=== PATIENT | female | born 1955 | race Caucasian/White ===

== ENCOUNTER → 2020-06-12 08:51 | Outpatient (BNVA) | payer MEDICARE, BC, SELFPAY | PROVIDERS: Family Provider Family Medicine; Visit Provider Nurse Practitioner Family | DX: E11.9 Type 2 diabetes mellitus without complications (principal); I10 Essential (primary) hypertension; M25.562 Pain in left knee; Z79.899 Other long term (current) drug therapy | CPT/HCPCS: 80053; 82043; 83036 ==

== ENCOUNTER 2020-06-14 09:33 | Outpatient (CLI) | payer MEDICARE, BC, SELFPAY ==
--- NOTE | 2020-06-14 09:50 | XR_ITS ---
WS: [id number] KNEE LEFT TECHNIQUE: 3 views of the left knee CLINICAL INFORMATION: M25.562 - Pain in left knee COMPARISON: None. FINDINGS: Mild soft tissue edema. Small suprapatellar effusion. Mild tricompartmental arthritis. No acute fract ures. XR/XR knee LT 3V* [id number] IMPRESSION: 1. Mild soft tissue edema with small suprapatellar effusion. 2. Mild tricompartmental arthritis. 3. No acute fractures.
== END 2020-06-14 09:34 | disposition home or self-care (01) ==
LOC: RADWPI 09:38
PROVIDERS: PCP Nurse Practitioner Family; Visit Provider Nurse Practitioner Family
DX: R60.0 Localized edema (principal); M25.462 Effusion, left knee; M13.862 Other specified arthritis, left knee
CPT/HCPCS: 73562

== ENCOUNTER → 2020-11-20 13:52 | Outpatient (BNVA) | payer MEDICARE, BC, SELFPAY | PROVIDERS: PCP Nurse Practitioner Family; Visit Provider Nurse Practitioner Family | DX: E11.9 Type 2 diabetes mellitus without complications (principal) | CPT/HCPCS: 83036 ==

== ENCOUNTER 2021-01-17 07:54 | Outpatient (CLI) | payer MEDICARE, BC, SELFPAY ==
--- NOTE | 2021-01-17 08:02 | XR_ITS ---
WS: [id number] LEFT HIP HISTORY: M25.552 - Pain in left hip COMPARISON: 07/26/[address] LEFT hip: No acute fracture or dislocation. Moderate narrowing of the LEFT hip joint. There is slight medial migration of the femoral head. No osteochondral lesions. Slightly irregularity along the ry ex of the femoral head. Lobulated ill-defined sclerotic focus measuring 15 mm along the intertrochanteric line. This was also noted on a prior CT from 2008 and most consistent with enchondroma. XR/XR hip LT 2-3V wo/w pel* [id number] IMPRESSION: 1. No hip fracture. 2. Moderate osteoarthritic changes at the LEFT hip joint.
== END 2021-01-17 07:55 | disposition home or self-care (01) ==
PROVIDERS: PCP Nurse Practitioner Family; Visit Provider Nurse Practitioner Family
DX: M25.552 Pain in left hip (principal)
CPT/HCPCS: 73502

== ENCOUNTER 2021-02-01 09:55 | Outpatient (CLI) | payer MEDICARE, BC, SELFPAY ==
--- NOTE | 2021-02-01 10:07 | MR_ITS ---
WS: [id number] MRI LEFT HIP without CONTRAST. COMPARISON: None Multiplanar, multisequence imaging is performed without contrast. History: LEFT hip pain for 6 months. Increasing. Mild narrowing of the hip joints bilaterally but slightly greater on the LEFT. There is mild loss of the normal cortex and contour of the LEFT hip. Subchondral area of osteonecrosis measuring 10 x 4 mm involving the superior medial LEFT femoral head. Serpiginous margins with decreased signal in the per iphery. Most consistent with osteonecrosis. There is an additional low signal lobulated lesion along the intertrochanteric line extending over a length of 12 mm which is been previously described probab ly represents an enchondroma. Very slightly more fluid surrounding the LEFT hip joint than the RIGHT. SI joints are normal. No muscle atrophy or edema. MR/MR hip LT wo con* [id number] IMPRESSION: 1. Small area of osteonecrosis measuring 10 x 4 mm in the superior medial LEFT femoral head. No loose body or fragmentation. No edema. 2. Mild narrowing of the LEFT hip joint with mild loss of cartilage. 3. Very small LEFT hip joint effusion as compared to the RIGHT. 4. Enchondroma LEFT intertrochanteric line with long-term stability.
== END 2021-02-01 09:56 | disposition home or self-care (01) ==
PROVIDERS: PCP Nurse Practitioner Family; Visit Provider Nurse Practitioner Family
DX: M25.552 Pain in left hip (principal); M87.9 Osteonecrosis, unspecified; M25.452 Effusion, left hip; D16.9 Benign neoplasm of bone and articular cartilage, unspecified
CPT/HCPCS: 73721

== ENCOUNTER → 2021-05-14 14:11 | Outpatient (BNVA) | payer MEDICARE, BC, SELFPAY | PROVIDERS: PCP Nurse Practitioner Family; Visit Provider Nurse Practitioner Family | DX: E11.9 Type 2 diabetes mellitus without complications (principal); R25.2 Cramp and spasm | CPT/HCPCS: 80053; 83036; 83735 ==

== ENCOUNTER → 2021-06-12 15:21 | Outpatient (BNVA) | payer MEDICARE, BC, SELFPAY | PROVIDERS: PCP Nurse Practitioner Family; Visit Provider Nurse Practitioner Family | DX: Z11.52 Encounter for screening for COVID-19 (principal); Z20.822 Contact with and (suspected) exposure to COVID-19; J06.9 Acute upper respiratory infection, unspecified | CPT/HCPCS: 87486; 87581; 87633 ==

== ENCOUNTER 2021-11-06 14:31 | Outpatient (CLI) | payer MEDICARE, BC, SELFPAY ==
--- NOTE | 2021-11-06 14:39 | XRR_ITS ---
PROCEDURE INFORMATION: Exam: XR Chest Exam date and time: 11/06/2021 2:41 PM Age: 66 years old Clinical indication: Cough; Prior surgery; Surgery type: Bilat mastectomy, HX left breast cancer; Patient HX: Painful spots on lt side beside breast starting on RT side as well since Thursday. PT has had bi-lat mastectomy; Additional info: R05.9 - cough, unspecified TECHNIQUE: Imaging protocol: XR of the chest. Views: 2 views. COMPARISON: No relevant prior studies available. FINDINGS: Lungs: See Heart/Mediastinum finding. Pleural spaces: Unremarkable. No pleural effusion. No pneumothorax. Heart/Mediastinum: Midline/left retrocardiac density with air-fluid level is noted measuring about 7-8 cm, representing a hiatal hernia. No acute consolidation otherwise. Bones/joints: Osteopenia with degenerative thoracic spine changes. Mild kyphosis. Soft tissues: Multiple surgical clips projecting in the left lower thorax, right upper thorax and axillary region. History indicates prior bilateral mastectomy however prominent bilateral breast tissue is present. Clinical correlation is needed. XR/XR chest 2V* [id number] IMPRESSION: 1. Hiatal hernia. No other acute cardiopulmonary findings. 2. Soft tissue findings as above.
== END 2021-11-06 14:32 | disposition home or self-care (01) ==
LOC: RAD 14:34
PROVIDERS: PCP Nurse Practitioner Family; Visit Provider Nurse Practitioner Family
DX: K44.9 Diaphragmatic hernia without obstruction or gangrene (principal); M85.88 Other specified disorders of bone density and structure, other site; Z90.13 Acquired absence of bilateral breasts and nipples; Z85.3 Personal history of malignant neoplasm of breast
CPT/HCPCS: 71046

== ENCOUNTER 2022-02-26 15:28 | Outpatient (CLI) | payer MEDICARE, BC, SELFPAY ==
--- NOTE | 2022-02-26 15:46 | XR_ITS ---
WS: [email or web address] Left hip, 2 views, 02/26/2022 Clinical Data: M25.552 - Pain in left hip Comparison: Left hip, 01/17/2021 Findings: No fractures or dislocations are seen. The hip joint is intact. The left hip shows narrowing with scl erosis of the adjacent acetabulum. There is a small acetabular lip. The soft tissues are not remarkab le. The adjacent pelvis is normal. There is a small enchondroma in the intertrochanteric region of the left hip. XR/XR hip LT 2-3V wo/w pel* [id number] Impression: Minimal osteoarthritis the left hip. Tonnis classification: grade 1: sclerosis of femoral head and acetabulum or sli ght joint space narrowing or slight lipping at joint margins
--- NOTE | 2022-02-26 15:46 | XR_ITS ---
WS: [email or web address] Left knee, 3 views, 02/26/2022 Clinical Data: M25.562 - Pain in left knee Comparison: Left knee, 06/14/2020. Findings: No fractures or dislocations are seen. There is medial joint compartment narrowing with small spurs o f the medial femoral condyle and medial tibial plateau.. The patella shows small posterior spurs. The soft tissues are unremarkable. XR/XR knee LT 3V* [id number] Impression: Mild osteoarthritis of the left knee. Kellgren-Twan Classification: grade 2 (minimal): definite osteophytes and p ossible joint space narrowing
== END 2022-02-26 15:29 | disposition home or self-care (01) ==
PROVIDERS: PCP Nurse Practitioner Family; Visit Provider Nurse Practitioner Family
DX: M17.12 Unilateral primary osteoarthritis, left knee (principal); M16.12 Unilateral primary osteoarthritis, left hip
CPT/HCPCS: 73502; 73562

== ENCOUNTER → 2022-03-04 09:40 | Outpatient (BNVA) | payer MEDICARE, BC, SELFPAY | PROVIDERS: PCP Nurse Practitioner Family; Referring Provider Nurse Practitioner Family; Visit Provider Student in an Organized Health Care Education/Training Program | DX: M17.12 Unilateral primary osteoarthritis, left knee (principal) | CPT/HCPCS: 73560; 73565; 99204 ==

== ENCOUNTER → 2022-04-18 07:42 | Outpatient (BNVA) | payer MEDICARE, BC, SELFPAY | PROVIDERS: PCP Nurse Practitioner Family; Visit Provider Student in an Organized Health Care Education/Training Program | DX: M17.12 Unilateral primary osteoarthritis, left knee (principal) | CPT/HCPCS: 20610; 99213; J7325 ==

== ENCOUNTER → 2022-05-26 11:41 | Outpatient (BNVA) | payer MEDICARE, BC, SELFPAY | PROVIDERS: PCP Nurse Practitioner Family; Visit Provider Nurse Practitioner Family | DX: I10 Essential (primary) hypertension (principal); R53.83 Other fatigue; E11.9 Type 2 diabetes mellitus without complications; J06.9 Acute upper respiratory infection, unspecified | CPT/HCPCS: 80053; 80061; 83036; 85025 ==

== ENCOUNTER → 2022-05-27 09:40 | Outpatient (BNVA) | payer MEDICARE, BC, SELFPAY | PROVIDERS: PCP Nurse Practitioner Family; Visit Provider Student in an Organized Health Care Education/Training Program | DX: M16.12 Unilateral primary osteoarthritis, left hip (principal) | CPT/HCPCS: 99213 ==

== ENCOUNTER → 2022-06-11 08:04 | Outpatient (BNVA) | payer MEDICARE, BC, SELFPAY | PROVIDERS: PCP Nurse Practitioner Family; Visit Provider Podiatrist Foot & Ankle Surgery | DX: E11.9 Type 2 diabetes mellitus without complications (principal); Z79.84 Long term (current) use of oral hypoglycemic drugs; B35.1 Tinea unguium; R60.9 Edema, unspecified; L84 Corns and callosities | CPT/HCPCS: 11056; 11720; 99203 ==

== ENCOUNTER → 2022-08-25 08:06 | Outpatient (BNVA) | payer MEDICARE, BC, SELFPAY | PROVIDERS: PCP Nurse Practitioner Family; Visit Provider Podiatrist Foot & Ankle Surgery | DX: E11.42 Type 2 diabetes mellitus with diabetic polyneuropathy (principal); B35.1 Tinea unguium; R60.9 Edema, unspecified; L84 Corns and callosities; G62.9 Polyneuropathy, unspecified | CPT/HCPCS: 11056; 11721 ==

== ENCOUNTER 2022-11-25 09:43 | Outpatient (CLI) | payer MEDICARE, BC, SELFPAY ==
--- NOTE | 2022-11-25 09:51 | XR_ITS ---
WS: [email or web address] EXAMINATION: XR tibia fibula RT 2V [id number] REASON FOR EXAM: R22.41 - Localized swelling, mass and lump, right lower limb COMPARISON: None available. ORDER DATE: 11/25/2022 9:57 AM FINDINGS: No acute osseous change in the leg. There is prominent subcutaneous separate nodular calcium deposits in the collection in the lower third of the medial right leg primarily and remaining in a linear dis tribution of the near the medial level. There are fewer but similar-appearing calcifications in the l ateral subcutaneous soft tissues external to the muscular fascia layers. Extensive varicosities are d emonstrated in this area and many of these calcifications are probably secondary to venous stasis . IMPRESSION: Extensive soft tissue calcifications as described above likely related to venous stasis and varicose veins.
--- NOTE | 2022-11-25 09:51 | XR_ITS ---
WS: [email or web address] EXAMINATION: XR hip LT 2-3V wo/w pel* [id number] REASON FOR EXAM: M25.552 - Pain in left hip COMPARISON: 02/26/2022 ORDER DATE: 11/25/2022 9:57 AM TECHNIQUE: Frontal internal/external rotation views of the left hip were obtained. No fractures or dislocations are seen. The hip joint is intact. The left hip shows marked narrowing w ith sclerosis of the adjacent acetabulum. There is a small acetabular lip. The soft tissues are not remarkable. The adjacent pelvis is normal. There is a small enchondroma in the intertrochanteric region of the left hip. XR/XR hip LT 2-3V wo/w pel* [id number] Impression: Marked osteoarthritis the left hip.
== END 2022-11-25 09:44 | disposition home or self-care (01) ==
LOC: RAD 09:44
PROVIDERS: PCP Nurse Practitioner Family; Visit Provider Nurse Practitioner Family
DX: M16.12 Unilateral primary osteoarthritis, left hip (principal); R22.41 Localized swelling, mass and lump, right lower limb; L94.2 Calcinosis cutis
CPT/HCPCS: 73502; 73590

== ENCOUNTER → 2022-11-27 13:41 | Outpatient (BNVA) | payer MEDICARE, BC, SELFPAY | PROVIDERS: PCP Nurse Practitioner Family; Visit Provider Podiatrist Foot & Ankle Surgery | DX: B35.1 Tinea unguium (principal); R60.9 Edema, unspecified; L84 Corns and callosities; E11.42 Type 2 diabetes mellitus with diabetic polyneuropathy; Z79.84 Long term (current) use of oral hypoglycemic drugs; G62.9 Polyneuropathy, unspecified | CPT/HCPCS: 99213 ==

== ENCOUNTER 2022-12-25 09:02 | Outpatient (CLI) | payer MEDICARE, BC, SELFPAY ==
--- NOTE | 2022-12-25 09:15 | USCV_ITS ---
Ashley Graff Age: 67 Gender: F : 1955 Exam Date: 12/25/2022 10:11 Ordering Phys: Cat Barber-C [employer] Technologist: David Dotson Exam Location: [facility] [place] Indication: leg pain Risk Factors: Previous Vascular Surgery: RIGHT LEFT BP: 164.0 / 107.00 BP: 163.0/ 91.00 0 0 Waveform Velocity (cm/s) Velocity (cm/s) Waveform Triphasic 132.3 Iliac Prox 125.8 Triphasic Triphasic 132.3 Iliac Mid 144.4 Triphasic Triphasic 99.9 Iliac Distal 127.2 Triphasic Triphasic 101.6 CHURCH BUSINESS ADMINISTRATOR 115.8 Triphasic Triphasic 123.4 SFA Prox 151.5 Triphasic Triphasic 122.2 SFA Mid 95.8 Triphasic Triphasic SFA Dist Triphasic 93.8 98.6 Triphasic 72.7 POP 41.2 Triphasic Triphasic 91.1 PRIVATE DETECTIVE 89.4 Triphasic Triphasic 92.0 DPA 72.7 Triphasic 1.0 JAMES 1.0 FINDINGS Intimal thickening in the femoral arteries bilaterally. Normal arterial Doppler waveforms and Doppler flow velocities Resting JAMES of 1.0 on both sides CONCLUSIONS No evidence of any significant arterial obstruction, based on the above findings. Dr Ian Gomez MD [facility] (Electronically Signed) Final Date: 29 December 2022 09:12 S
== END 2022-12-25 09:03 | disposition home or self-care (01) ==
LOC: RAD 09:03
PROVIDERS: PCP Nurse Practitioner Family; Visit Provider Nurse Practitioner Family
DX: I83.90 Asymptomatic varicose veins of unspecified lower extremity (principal); M79.605 Pain in left leg; M79.604 Pain in right leg
CPT/HCPCS: 93925

== ENCOUNTER → 2023-01-06 10:10 | Outpatient (BNVA) | payer MEDICARE, BC, SELFPAY | PROVIDERS: PCP Nurse Practitioner Family; Referring Provider Nurse Practitioner Family; Visit Provider Student in an Organized Health Care Education/Training Program | DX: M17.12 Unilateral primary osteoarthritis, left knee; M16.12 Unilateral primary osteoarthritis, left hip | CPT/HCPCS: 20610; 73560; 73565; 99214; J3301 ==

== ENCOUNTER → 2023-01-16 10:15 | Outpatient (BNVA) | payer MEDICARE, BC, SELFPAY | PROVIDERS: PCP Nurse Practitioner Family; Visit Provider Nurse Practitioner Family | DX: E11.9 Type 2 diabetes mellitus without complications (principal); I10 Essential (primary) hypertension; E78.5 Hyperlipidemia, unspecified | CPT/HCPCS: 80053; 80061; 83036 ==

== ENCOUNTER → 2023-04-17 10:34 | Outpatient (BNVA) | payer MEDICARE, BC, SELFPAY | PROVIDERS: PCP Nurse Practitioner Family; Visit Provider Physician Assistant | DX: M17.12 Unilateral primary osteoarthritis, left knee (principal); M16.12 Unilateral primary osteoarthritis, left hip | CPT/HCPCS: 20610; 99213; J3301 ==

== ENCOUNTER → 2023-06-12 07:56 | Outpatient (BNVA) | payer MEDICARE, BC, SELFPAY | PROVIDERS: PCP Nurse Practitioner Family; Visit Provider Student in an Organized Health Care Education/Training Program | DX: M16.12 Unilateral primary osteoarthritis, left hip (principal) | CPT/HCPCS: 20610; 77002; 99214; J3301 ==

== ENCOUNTER 2023-06-25 10:32 | Outpatient (CLI) | payer MEDICARE, BC, SELFPAY ==
--- NOTE | 2023-06-25 10:35 | XR_ITS ---
WS: [email or web address] Exam: XR ankle RT min 3V* [id number] Date/Time of Exam: 06/25/2023 10:44 AM Reason For Exam: M25.571 - Pain in right ankle and joints of right foot No acute fracture or dislocation. Old fracture deformity of the lower fibula. The ankle mortise is in tact. Slight lateral soft tissue swelling. Soft tissue calcifications about the ankle likely related to venous stasis. IMPRESSION: 1. No acute fracture. 2. Mild lateral soft tissue swelling. Old healed distal fibular fracture. 3. Soft tissue calcifications about the ankle likely related to venous stasis.
== END 2023-06-25 10:33 | disposition home or self-care (01) ==
LOC: RAD 10:32
PROVIDERS: PCP Nurse Practitioner Family; Visit Provider Nurse Practitioner Family
DX: M25.571 Pain in right ankle and joints of right foot (principal); Z87.81 Personal history of (healed) traumatic fracture
CPT/HCPCS: 73610

== ENCOUNTER → 2023-07-20 09:26 | Outpatient (BNVA) | payer MEDICARE, BC, SELFPAY | PROVIDERS: PCP Nurse Practitioner Family; Visit Provider Nurse Practitioner Family | DX: E11.9 Type 2 diabetes mellitus without complications (principal); I10 Essential (primary) hypertension; M81.0 Age-related osteoporosis without current pathological fracture | CPT/HCPCS: 80053; 80061; 82306; 83036 ==

== ENCOUNTER → 2023-07-27 09:51 | Outpatient (BNVA) | payer MEDICARE, BC, SELFPAY | PROVIDERS: PCP Nurse Practitioner Family; Visit Provider Nurse Practitioner Family | DX: I10 Essential (primary) hypertension (principal); E11.9 Type 2 diabetes mellitus without complications; M81.0 Age-related osteoporosis without current pathological fracture | CPT/HCPCS: 80053; 80061; 82306; 83036 ==

== ENCOUNTER 2023-07-28 09:11 | Outpatient (CLI) | payer MEDICARE, BC, SELFPAY ==
--- NOTE | 2023-07-28 09:30 | MR_ITS ---
WS: [email or web address] MRI RIGHT ANKLE WITHOUT CONTRAST. COMPARISON: 06/25/2023 Multiplanar, multisequence imaging is performed without contrast. Abnormal peroneal tendons and tendon sheath. There is a large amount of fluid within the tendon sheat h. The peroneal tendons are being displaced by an enlarged peroneal tubercle. There is edema in the p eroneal tubercle. Very small and thin caliber peroneal brevis tendon. Distal to the tubercle there is a poorly visualized peroneal brevis tendon which is small caliber with increased T2 signal. The angy neus longus tendon proximal to the tubercle may be slightly invaginated into a torn peroneal brevis. There is a large amount of edema in the soft tissues at this level also. There are numerous osteochondral and subchondral changes within the bones at the ankle. Predominantly within the talus and calcaneus. There are multiple subchondral erosions type changes along the infer ior surface of the talus and extending into the calcaneus. There is narrowing of the subtalar joint. Osteochondral lesion along the medial superior talar dome measures 7.4 x 4.2 mm. There is a more foca l osteochondral lesion in the lateral most aspect of the cuboid. Proximal visualized metatarsals are normal. Small calcaneal spur. Normal Achilles tendon. There is no significant joint effusion. Mild flattening of the normal arch of the foot. The flexor hallucis longus and flexor digitorum longus tendons are normal. Posterior tibia lis tendon is normal. No extensor tendon abnormality. IMPRESSION: 1. Abnormal peroneal tendons and tendon sheath. 2. Increased fluid within the peroneal tendon sheath with small caliber peroneal brevis tendon at th e level of the peroneal tubercle. Suspect split tear of the peroneal brevis with invagination of the peroneus longus tendon. 3. Abnormal peroneal tubercle with edema and enlargement displacing the peroneal tendons and sheath. 4. Distal to the enlarged peroneal tubercle there is abnormal signal in the visualized peroneal brev is tendon which is at least partially torn with tendinopathy. 5. Multifocal areas of erosions and osteochondral defects involving the talus, calcaneus and cuboid. These findings are all probably chronic and related to degenerative arthropathy. Consider early tillman ges of a neuropathic joint although there is no significant collapse of the midfoot at this time.
== END 2023-07-28 09:12 | disposition home or self-care (01) ==
LOC: RAD 09:11
PROVIDERS: PCP Nurse Practitioner Family; Visit Provider Nurse Practitioner Family
DX: M25.571 Pain in right ankle and joints of right foot (principal); M67.873 Other specified disorders of tendon, right ankle and foot; R93.6 Abnormal findings on diagnostic imaging of limbs
CPT/HCPCS: 73721

== ENCOUNTER 2023-09-04 06:00 | Outpatient (CLI) | payer MEDICARE, BC, SELFPAY | END 2023-09-04 23:59 | disposition home or self-care (01) | LOC: SPT 09-07 08:01 | PROVIDERS: PCP Nurse Practitioner Family; Visit Provider Podiatrist Foot & Ankle Surgery | DX: Z46.89 Encounter for fitting and adjustment of other specified devices (principal); M25.571 Pain in right ankle and joints of right foot; E11.42 Type 2 diabetes mellitus with diabetic polyneuropathy; B35.1 Tinea unguium; R60.9 Edema, unspecified; L84 Corns and callosities; G62.9 Polyneuropathy, unspecified | CPT/HCPCS: 99213; L1902 ==

== ENCOUNTER → 2023-09-15 09:14 | Outpatient (BNVA) | payer MEDICARE, BC, SELFPAY | PROVIDERS: PCP Nurse Practitioner Family; Visit Provider Student in an Organized Health Care Education/Training Program | DX: M16.12 Unilateral primary osteoarthritis, left hip (principal) | CPT/HCPCS: 99213 ==

== ENCOUNTER 2023-10-15 09:25 | Outpatient (RCR) | payer MEDICARE, BC, SELFPAY | END 2023-11-06 23:59 | disposition home or self-care (01) | LOC: SPT 09:25 | PROVIDERS: PCP Nurse Practitioner Family; Visit Provider Podiatrist Foot & Ankle Surgery | DX: M76.71 Peroneal tendinitis, right leg (principal) | CPT/HCPCS: 97110; 97161 ==

== ENCOUNTER → 2023-10-16 08:21 | Outpatient (BNVA) | payer MEDICARE, BC, SELFPAY | PROVIDERS: PCP Nurse Practitioner Family; Visit Provider Student in an Organized Health Care Education/Training Program | DX: M16.12 Unilateral primary osteoarthritis, left hip (principal) | CPT/HCPCS: 20610; 77002; 99213; J3301 ==

== ENCOUNTER → 2023-10-30 09:31 | Outpatient (BNVA) | payer MEDICARE, BC, SELFPAY | PROVIDERS: PCP Nurse Practitioner Family; Visit Provider Podiatrist Foot & Ankle Surgery | DX: B35.1 Tinea unguium; R60.9 Edema, unspecified; L84 Corns and callosities; G62.9 Polyneuropathy, unspecified; E11.42 Type 2 diabetes mellitus with diabetic polyneuropathy; Z79.84 Long term (current) use of oral hypoglycemic drugs | CPT/HCPCS: 99213 ==

== ENCOUNTER → 2023-11-30 10:10 | Outpatient (BNVA) | payer MEDICARE, BC, SELFPAY | PROVIDERS: PCP Nurse Practitioner Family; Visit Provider Podiatrist Foot & Ankle Surgery | DX: B35.1 Tinea unguium (principal); R60.9 Edema, unspecified; L84 Corns and callosities; E11.42 Type 2 diabetes mellitus with diabetic polyneuropathy; G62.9 Polyneuropathy, unspecified; Z79.84 Long term (current) use of oral hypoglycemic drugs | CPT/HCPCS: 99213 ==

== ENCOUNTER 2023-12-01 16:01 | Outpatient (CLI) | payer MEDICARE, BC, SELFPAY ==
--- NOTE | 2023-12-01 16:09 | XRR_ITS ---
PROCEDURE INFORMATION: Exam: XR Right Knee Exam date and time: 12/01/2023 4:23 PM Age: 68 years old Clinical indication: Pain; Knee; Right; Prior surgery; Surgery date: 6+ months; Surgery type: Meniscus; Additional info: M25.561 - pain in right knee TECHNIQUE: Imaging protocol: Radiologic exam of the right knee. Views: 3 views. COMPARISON: MR ankle RT wo con* [id number] 07/28/2023 10:01 AM FINDINGS: Bones/joints: Degenerative change, mild. Soft tissues: Normal. XR/XR knee RT 3V* [id number] IMPRESSION: No acute or aggressive osseous abnormality.
== END 2023-12-01 16:02 | disposition home or self-care (01) ==
LOC: RAD 16:03
PROVIDERS: PCP Nurse Practitioner Family; Visit Provider Nurse Practitioner Family
DX: M25.561 Pain in right knee (principal); Z98.890 Other specified postprocedural states
CPT/HCPCS: 73562

== ENCOUNTER → 2024-01-13 15:31 | Outpatient (BNVA) | payer MEDICARE, BC, SELFPAY | PROVIDERS: PCP Nurse Practitioner Family; Visit Provider Nurse Practitioner Family | DX: J02.9 Acute pharyngitis, unspecified (principal) | CPT/HCPCS: 87880 ==

== ENCOUNTER 2024-01-20 15:44 | Outpatient (CLI) | payer MEDICARE, BC, SELFPAY ==
--- NOTE | 2024-01-20 16:00 | MR_ITS ---
WS: [email or web address] MRI RIGHT KNEE HISTORY: M25.561 - Pain in right knee COMPARISON: 12/01/2023 radiograph Anterior cruciate ligament: Abnormal signal throughout the expected location of the ACL. There is los s of the normal fibers of the ACL with marked thinning in the midportion suggesting a high-grade if n ot complete tear. There is also mucoid degeneration in the proximal and distal tendon. Posterior cruciate ligament: Intact. Medial collateral ligament: Intact. Posterior lateral corner structures: Intact. Medial menisci: Small caliber posterior horn with truncation of the free edge and abnormal signal ext ending into the meniscal root consistent with a complex tear. Anterior horn is appropriate. Lateral meniscus: Abnormal increased signal in the central portion of the anterior horn does not exte nd to an articular surface. There is abnormal signal throughout majority of the posterior horn but th is also does not definitely extend to an articular surface. Extensor mechanism: Distal quadriceps tendon and patellar tendons are intact. Fluid and soft tissue: Moderate joint effusion. Large lobulated Bailey's cyst extends over a length gr eater than 5.7 cm. There is a small fluid collection posterior to the PCL which may be a small gangli on. Osseous and articular structures: Patellofemoral compartment: Mild narrowing of the patellofemoral joint space. Mild chondromalacia med ial patellar facet. No fracture. Medial compartment: Moderate narrowing with diffuse mild chondromalacia. More focal thinning of the c artilage along the central portion of the femoral condyle at the site of the meniscal root tear. No f racture. Lateral compartment: Mild narrowing of the lateral compartment. Mild chondromalacia. 5 mm cartilage d efect along the weightbearing surface of the femoral condyle. No fracture or marrow edema. MR/MR knee RT wo con* [id number] IMPRESSION: 1. Abnormal signal throughout the ACL. Suspect high-grade if not complete tear in the central ACL. There is additional mucoid degeneration. 2. Complex tear meniscal root posterior horn medial meniscus with additional t runcation of the free edge. 3. Increased signal within the anterior and posterior horns of the lateral men iscus but no extension to an articular surface. 4. Moderate size joint effusion. 5. Large lobulated Bailey's cyst. 6. Small fluid collection adjacent to the PCL may be a ganglion. 7. Mild narrowing of the patellofemoral and lateral compartments with chondrom alacia as described above. 5 mm cartilage defect weightbearing surface of the f emoral condyle. 8. Moderate narrowing medial compartment with mild diffuse chondromalacia. Mor e focal thinning of the cartilage along the central femoral condyle near the me niscal root tear.
== END 2024-01-20 15:45 | disposition home or self-care (01) ==
LOC: RAD 15:46
PROVIDERS: PCP Nurse Practitioner Family; Visit Provider Nurse Practitioner Family
DX: M25.461 Effusion, right knee; S83.206A Unspecified tear of unspecified meniscus, current injury, right knee, initial encounter; X58.XXXA Exposure to other specified factors, initial encounter; M71.21 Synovial cyst of popliteal space [Baker], right knee; M94.261 Chondromalacia, right knee
CPT/HCPCS: 73721

== ENCOUNTER → 2024-01-29 08:21 | Outpatient (BNVA) | payer MEDICARE, BC, SELFPAY | PROVIDERS: PCP Nurse Practitioner Family; Visit Provider Student in an Organized Health Care Education/Training Program | DX: M16.12 Unilateral primary osteoarthritis, left hip (principal) | CPT/HCPCS: 20610; 77002; J3301 ==

== ENCOUNTER → 2024-02-23 09:07 | Outpatient (BNVA) | payer MEDICARE, BC, SELFPAY | PROVIDERS: PCP Nurse Practitioner Family; Visit Provider Student in an Organized Health Care Education/Training Program | DX: M17.11 Unilateral primary osteoarthritis, right knee; S83.511A Sprain of anterior cruciate ligament of right knee, initial encounter; S83.206A Unspecified tear of unspecified meniscus, current injury, right knee, initial encounter; X58.XXXA Exposure to other specified factors, initial encounter | CPT/HCPCS: 73560; 73565; 99213 ==

== ENCOUNTER → 2024-02-26 11:43 | Outpatient (BNVA) | payer MEDICARE, BC, SELFPAY | PROVIDERS: PCP Nurse Practitioner Family; Visit Provider Nurse Practitioner Family | DX: E11.9 Type 2 diabetes mellitus without complications (principal); I10 Essential (primary) hypertension | CPT/HCPCS: 80053; 80061; 83036 ==

== ENCOUNTER → 2024-03-03 08:48 | Outpatient (BNVA) | payer MEDICARE, BC, SELFPAY | PROVIDERS: PCP Nurse Practitioner Family; Visit Provider Orthopaedic Surgery | DX: M54.9 Dorsalgia, unspecified (principal) | CPT/HCPCS: 72110; 99203 ==

== ENCOUNTER → 2024-05-03 09:35 | Outpatient (BNVA) | payer MEDICARE, BC, SELFPAY | PROVIDERS: PCP Nurse Practitioner Family; Visit Provider Student in an Organized Health Care Education/Training Program | DX: M17.11 Unilateral primary osteoarthritis, right knee (principal); S83.206A Unspecified tear of unspecified meniscus, current injury, right knee, initial encounter; W19.XXXA Unspecified fall, initial encounter | CPT/HCPCS: 20610; 73560; 73565; 99213; J3301 ==

== ENCOUNTER → 2024-05-11 10:23 | Outpatient (BNVA) | payer MEDICARE, BC, SELFPAY | PROVIDERS: PCP Nurse Practitioner Family; Visit Provider Podiatrist Foot & Ankle Surgery | DX: B35.1 Tinea unguium (principal); R60.9 Edema, unspecified; L84 Corns and callosities; E11.9 Type 2 diabetes mellitus without complications; G62.9 Polyneuropathy, unspecified; M76.829 Posterior tibial tendinitis, unspecified leg; E11.42 Type 2 diabetes mellitus with diabetic polyneuropathy; Z79.84 Long term (current) use of oral hypoglycemic drugs | CPT/HCPCS: 99213 ==

== ENCOUNTER → 2024-08-03 09:16 | Outpatient (BNVA) | payer MEDICARE, BC, SELFPAY | PROVIDERS: PCP Nurse Practitioner Family; Visit Provider Student in an Organized Health Care Education/Training Program | DX: M16.12 Unilateral primary osteoarthritis, left hip (principal); D16.22 Benign neoplasm of long bones of left lower limb | CPT/HCPCS: 73502; 99214 ==

== ENCOUNTER 2024-08-15 07:50 | Outpatient (CLI) | payer MEDICARE, BC, SELFPAY ==
--- NOTE | 2024-08-15 08:00 | MR_ITS ---
WS: [email or web address] MRI LEFT HIP WITHOUT CONTRAST. COMPARISON: 02/01/2021, radiograph 08/03/2024 Multiplanar, multisequence imaging is performed without contrast. Significant progression of degenerative changes at the LEFT hip. There is now a large amount of marrow edema involving the LEFT femoral head and neck and diffusely throughout the acetabulum. Diffuse loss of cartilage. Enlarging area of osteonecrosis involving the superior femoral head. Extensive subchondral cystic changes within the femoral head and acetabulum. Osteophytic ridging of the acetabulum. Reidentified is a long-term stability enchondroma measuring 11 x 11 mm along the intertrochanteric region. Minimal narrowing and degenerative changes at the RIGHT hip. No sacral abnormality. No abnormality within the visualized pelvis. MR/MR hip LT wo con* [id number] IMPRESSION: 1. Severe, progressive degenerative arthropathy involving the LEFT hip joint. Since 2020 progression of joint space narrowing with marrow edema in the acetab ulum and femoral head and neck. 2. Complete loss of cartilage with enlarging area of osteonecrosis in the femo ral head. 3. Stable enchondroma LEFT hip.
== END 2024-08-15 07:51 | disposition home or self-care (01) ==
PROVIDERS: PCP Nurse Practitioner Family; Visit Provider Student in an Organized Health Care Education/Training Program
DX: D16.22 Benign neoplasm of long bones of left lower limb (principal); M16.12 Unilateral primary osteoarthritis, left hip; R93.7 Abnormal findings on diagnostic imaging of other parts of musculoskeletal system; M87.88 Other osteonecrosis, other site; M25.752 Osteophyte, left hip
CPT/HCPCS: 73721

== ENCOUNTER → 2024-08-16 11:48 | Outpatient (BNVA) | payer MEDICARE, BC, SELFPAY | PROVIDERS: PCP Nurse Practitioner Family; Visit Provider Nurse Practitioner Family | DX: J32.9 Chronic sinusitis, unspecified (principal) | CPT/HCPCS: 87400; 87426 ==

== ENCOUNTER 2024-08-17 15:38 | Outpatient (CLI) | payer MEDICARE, BC, SELFPAY ==
--- NOTE | 2024-08-17 16:00 | CT_ITS ---
WS: [email or web address] CT LEFT hip for JAMISON procedure HISTORY: LEFT TOTAL HIP ARTHROPLASTY Date: 08/17/2024 4:02 PM COMPARISON: None available. TECHNIQUE: Protocol for JAMISON total hip replacement has been obtained. This includes axial imaging from the hip joint through the knee joint. DLP: [id number] FINDINGS: Advanced degenerative arthritis LEFT hip with subchondral cystic change and sclerosis. Degenerative arthritis lower lumbar spine. Sigmoid diverticulosis. CT/CT hip LT [facility] [id number] IMPRESSION: CT imaging provided for [facility] robotic total knee replacement.
== END 2024-08-17 15:39 | disposition home or self-care (01) ==
PROVIDERS: PCP Nurse Practitioner Family; Visit Provider Student in an Organized Health Care Education/Training Program
DX: M16.12 Unilateral primary osteoarthritis, left hip (principal); R93.7 Abnormal findings on diagnostic imaging of other parts of musculoskeletal system; M47.896 Other spondylosis, lumbar region; K57.30 Diverticulosis of large intestine without perforation or abscess without bleeding
CPT/HCPCS: 73700

== ENCOUNTER 2024-08-23 08:16 | Outpatient (CLI) | payer MEDICARE, BC, SELFPAY ==
[2024-08-23 09:46] LABS: Basophils # 0.1 10^3/uL (0.0-0.1); Basophils % 1.3 %; Eosinophils # 0.5 10^3/uL (0.0-0.8); Eosinophils % 8.4 %; Hematocrit 39.1 % (36-47); Lymphocytes # 2.4 10^3/uL (0.8-4.8); Mean Corpuscular HGB Conc 30.4 g/dL (30-55); Mean Corpuscular Hemoglobin 28.5 pg (27-33); Mean Corpuscular Volume 93.5 fl (85-98); Mean Platelet Volume 9.3 fL (7.4-10.4); Monocytes # 0.4 10^3/uL (0.2-0.9); Monocytes % 6.4 %; Neutrophils # 2.72 10^3/uL (1.8-7.7); Neutrophils % 44.7 %; Nucleated Red Blood Cells % 0 %; Platelet Count 422 10^3/cmm (157-399); Red Blood Count 4.18 10^6/uL (3.85-5.65); Red Cell Distribution Width 13.5 % (12.1-15.1); White Blood Count 6.08 10^3/uL (3.29-11.43)
[2024-08-23 09:51] LABS: Bilirubin Urine Negative (Negative); Blood Urine Negative (Negative); Glucose Urine UA Negative (Normal); Ketones Urine Negative (Negative); Leukocyte Esterase Urine 2+ (Negative); Nitrate Urine Negative (Negative); Protein Urine Negative (Negative); Specific Gravity, Urine 1.016 (1.005-1.030); Urine Appearance Clear (CLEAR); Urine Color Yellow (Yellow); Urobilinogen Urine 0.2 mg/dL (Negative)
[2024-08-23 09:57] LABS: Add Urine Microscopic? YES; Bacteria Urine None Seen /hpf; Hyaline Casts Urine 0-4 /lpf; RBC Urine 0-2 /hpf (0-2); Squamous Epithelial Cell Urine 0-5 /hpf (0-5); WBC Urine 0-5 /hpf (0-5)
[2024-08-23 10:13] LABS: Albumin Level 4.4 g/dL (3.5-5.2); Chloride 102 mmol/L (98-107); Potassium 4.3 mmol/L (3.5-5.1); Sodium 139 mmol/L (136-145)
[2024-08-23 10:20] LABS: Estmated Average Glucose 128; Hemoglobin A1C 6.1 % (4.0-6.0)
[2024-08-23 10:25] LABS: Add Urine Culture? No
[2024-08-23 10:26] LABS: Alanine Aminotransferase 10 U/L (0-33); Alkaline Phosphatase 73 U/L (35-105); Anion Gap 15.3 (5-19); Aspartate Amino Transferase 15 U/L (0-32); Blood Urea Nitrogen 19 mg/dL (8-23); Calcium 9.4 mg/dL (8.5-10.5); Carbon Dioxide 26 mmol/L (22-29); Globulin 2.9 g/dL (1.3-4.6); Glomerular Filtration Rate 71.1 mL/min (90-130); Glucose 131 mg/dL (65-115); Osmolality Calculated 292 mOsm/kg (285-295); Total Bilirubin 0.3 mg/dL (0.15-1.2); Total Protein 7.3 g/dL (6.6-8.7)
== END 2024-08-23 08:17 | disposition home or self-care (01) ==
LOC: LAB 08:21
PROVIDERS: PCP Nurse Practitioner Family; Visit Provider Student in an Organized Health Care Education/Training Program
DX: Z01.818 Encounter for other preprocedural examination (principal); E11.9 Type 2 diabetes mellitus without complications
CPT/HCPCS: 36415; 80053; 81001; 83036; 85025

== ENCOUNTER → 2024-08-29 11:24 | Outpatient (BNVA) | payer MEDICARE, BC, SELFPAY | PROVIDERS: PCP Nurse Practitioner Family; Visit Provider Family Medicine | DX: Z01.818 Encounter for other preprocedural examination (principal) | CPT/HCPCS: 93005 ==

== ENCOUNTER 2024-09-05 09:22 | Observation (INO) | payer BC, MEDICARE, SELFPAY ==
[2024-09-05] VITALS (21 sets, daily range): BP systolic 106–198; BP diastolic 61–107; PULSE 68–92; RESP 16–22; TEMP 35.6–36.6; O2SAT 95–100; BMI 32.2
[2024-09-05 06:26] LABS: Glucose Point of Care 131 mg/dL (70-110)
[2024-09-05] MEDS: acetaminophen 1,000 MG/100 ML PIGGYBACK 400 MG IV ×3 (06:28→20:27)
[2024-09-05] MEDS: sodium chloride 0.9% 1,000 ML 30 ML IV (06:30)
--- NOTE | 2024-09-05 06:41 | ANES.PREANE2 ---
Pre-Anesthetic Assessment Height/Weight: Height 1.7 m Weight 93.44 kg Temp Pulse Resp BP Pulse Ox O2 Del Method 97.6 F 92 16 183/107 98 Room Air 09/05/24 06:09 09/05/24 06:09 09/05/24 06:09 09/05/24 06:09 09/05/24 06:09 09/05/24 06:09 Operation Date: 09/05/24 07:00 Proposed Procedures p Mauri Robot Total Hip Arthroplasty- Posterior approach(Left) - Lalo Forman DO Familial anesthetic complications: None Was Beta Mikayla taken within 24 hours: N/A Was Clonidine taken within 24 hours: N/A Last intake: Intake Last Liquid Date 09/05/24 Last Liquid Time 00:00 Last Solid Date 09/04/24 Last Solid Time 23:30 Social No alcohol and No tobacco Exam alert, oriented x 3, clear to auscultation bilaterally and regular rate & rhythm Airway Mallampati: Class III Dentition: other (missing) CV/HEM Deep Vein Thrombosis (many years ago -provoked after lower extremity osseous injury) and Hypertension Metabolic Diabetes Mellitus Anesthetic Plan ASA status: 2 Anesthesia: Regional (specify below) Other: spinal Risk of > 500 ml blood loss (7ml/kg in children): Yes, adequate IV access and fluids planned Medications/Allergies Home Medications ?Medication ?Instructions ?Recorded ?Confirmed ?Last Taken ?Type custom inserts 3010 #1 ea 05/11/24 08/16/24 Unknown Rx biotin 1,250 mcg-collagen 150 1 tab PO DAILY 08/03/24 09/01/24 Unknown History mg-vit F-G-G-min-herbal 353 chew tablet glipizide 5 mg tablet 5 mg PO BID 09/01/24 09/05/24 09/04/24 History losartan 50 mg tablet 50 mg PO DAILY 09/01/24 09/05/24 09/04/24 History metformin 1,000 mg tablet 1,000 mg PO BID 09/01/24 09/05/24 09/04/24 History Allergies Allergy/AdvReac Type Severity Reaction Status Date / Time No Known Allergies Allergy Verified 09/05/24 06:04 Current Medications Generic Name Dose Route Start Last Admin Trade Name Freq PRN Reason Stop Dose Admin Sodium Chloride 1,000 mls @ 30 mls/hr 09/05/24 06:00 09/05/24 06:30 Sodium Chloride 0.9% IV 09/06/24 05:59 30 mls/hr .Q24H DANNY Administration PFSH Anesthesia Medical History Degenerative joint disease of left hip Left knee DJD Osteoporosis HTN (hypertension) DM w/o complication type II Surgical History Hx of removal of ovary H/O mastectomy Family History Mother Cancer Social History Smoking and tobacco/nicotine status: never used tobacco/nicotine Alcohol intake: never Substance/Drug Use: never Adopted: No Caregiver/support person: No Lives independently: No Household members: spouse Marital status: service: No Current occupational status: retired Sexually active: Yes Do you think of yourself as: Straight/Heterosexual Current gender identity: Female Data Anesthesia 09/05/24 06:10 09/05/24 06:10 Cardiac Studies: No Data to Display
[2024-09-05 06:50] LABS: Basophils # 0.1 10^3/uL (0.0-0.1); Basophils % 0.9 %; Eosinophils # 0.3 10^3/uL (0.0-0.8); Eosinophils % 3.6 %; Lymphocytes # 2.3 10^3/uL (0.8-4.8); Lymphocytes % 30.3 %; Mean Corpuscular HGB Conc 31.6 g/dL (30-55); Mean Corpuscular Hemoglobin 29.3 pg (27-33); Mean Corpuscular Volume 92.7 fl (85-98); Mean Platelet Volume 9.1 fL (7.4-10.4); Monocytes # 0.5 10^3/uL (0.2-0.9); Neutrophils # 4.43 10^3/uL (1.8-7.7); Neutrophils % 59.1 %; Nucleated Red Blood Cells % 0 %; Platelet Count 429 10^3/cmm (157-399); Red Cell Distribution Width 13.5 % (12.1-15.1)
[2024-09-05 06:53] LABS: Blood Urea Nitrogen 20 mg/dL (8-23); Calcium 9.6 mg/dL (8.5-10.5); Carbon Dioxide 23 mmol/L (22-29); Chloride 102 mmol/L (98-107); Glomerular Filtration Rate 71.1 mL/min (90-130); Glucose 151 mg/dL (65-115); Osmolality Calculated 296 mOsm/kg (285-295); Sodium 140 mmol/L (136-145)
--- NOTE | 2024-09-05 06:57 | W.PM.OPSFHP ---
Same Day Surgery H&P Indication for Procedure/HPI DATE OF PROCEDURE: September 05, 2024 CHIEF COMPLAINT/INDICATIONFOR SURGICAL PROCEDURE: Left hip degenerative joint disease PREOP DIAGNOSIS: Left hip degenerative joint disease PLANNED PROCEDURE: Operation Date: 09/05/24 07:00 Proposed Procedures p Mauri Robot Total Hip Arthroplasty- Posterior approach(Left) - Lalo Forman, DO Medications/Allergies* Home Medications ?Medication ?Instructions ?Recorded ?Confirmed ?Type biotin 1,250 mcg-collagen 150 1 tab PO DAILY 08/03/24 09/01/24 History mg-vit J-H-Q-min-herbal 353 chew tablet glipizide 5 mg tablet 5 mg PO BID 09/01/24 09/05/24 History losartan 50 mg tablet 50 mg PO DAILY 09/01/24 09/05/24 History metformin 1,000 mg tablet 1,000 mg PO BID 09/01/24 09/05/24 History Allergies/Adverse Reactions Allergy/AdvReac Type Severity Reaction Status Date / Time No Known Allergies Allergy Verified 09/05/24 06:04 Current Medications: Generic Name Dose Route Start Last Admin Trade Name Freq PRN Reason Stop Dose Admin Sodium Chloride 1,000 mls @ 30 mls/hr 09/05/24 06:00 09/05/24 06:30 Sodium Chloride 0.9% IV 09/06/24 05:59 30 mls/hr .Q24H DANNY Administration Pertinent History/Comorbid Conditions* Medical History (Updated 05/15/24 @ 19:36 by Saud Collins DPM) Degenerative joint disease of left hip Left knee DJD Osteoporosis HTN (hypertension) DM w/o complication type II Surgical History (Updated 06/12/20 @ 08:27 by MARIA GUADALUPE Francisco) Hx of removal of ovary H/O mastectomy Family History (Updated 05/26/22 @ 11:11 by Camelia Mcwilliams LPN) Cancer Mother Social History Smoking and tobacco/nicotine status: never used tobacco/nicotine Alcohol intake: never Substance/Drug Use: never Adopted: No Caregiver/support person: No Lives independently: No Household members: spouse Marital status: service: No Current occupational status: retired Sexually active: Yes Do you think of yourself as: Straight/Heterosexual Current gender identity: Female Pertinent Exam Findings alert, oriented x 3, operative site marked and procedure specific exam findings Please refer to detailed orthopedic examination on 08/03/2024 listed below: The left hip shows decreased range of motion, pain withthe ends of internal and external rotation.? Crepitus noted on the left hip, tenderness to palpation left groin, tenderness palpation over the trochanteric bursa, mild tight IT band appreciated no significant lumbar tenderness palpation or SI joint tenderness to palpation. This reproduces pain near the groin. Recommendations Surgery/Procedure today Other Plans: Plan to proceed to the OR today for left total hip arthroplasty?Mauri robotic assisted posterior approach. She is cleared the preoperative clearance clinic process no acute change in her health since her last office visit due to medically optimized for surgical intervention her A1c is controlled and under 8. Review of the MRI does have a stable appearance of an enchondroma benign. At this point time talked about this with the patient and through shared decision making patient like to proceed with surgical intervention and proceed with surgery today. All questions have been answered at this time. Once again she understands the ins and outs procedure risk benefits complication alternatives surgery and through shared decision make elects proceed with surgical invention. All questions answered at this time. Coding Level of Care Code Acute Code for Marysol Diaz
[2024-09-05] MEDS: ceFAZolin 2,000 MG in sodium chloride 0.9% (plus) 50 ML 100 MG IV ×3 (07:15→23:29)
[2024-09-05] MEDS: tranexamic acid 1,000 mg/10mL SDV 1000 MG (08:13)
[2024-09-05] MEDS: vancomycin 1,000 MG SDV 2000 MG INTRA-ARTI (08:13)
--- NOTE | 2024-09-05 09:38 | P.BOP_ITS ---
Date of Procedure: 09/05/2024 Surgeon: Lalo Forman DO Behavioral Services Tech(s): Reynaldo Forman PA-C Procedure(s) performed: Left total hip arthroplasty?Mauri robotic assisted (posterior approach) Findings of the procedure(s): Patient found to have severe left hip degenerative joint disease underwent procedure as planned without issues or complications. Estimated blood loss: 150 mL Specimen(s) removed: Femoral head removed and sent for specimen Post-operative diagnosis: Left hip degenerative joint disease
--- NOTE | 2024-09-05 09:39 | P.OP_ITS ---
Operative Report Date of procedure: September 05, 2024 Surgeon: Lalo Forman DO Gear Room Keeper: Reynaldo Forman PA-C: PA was necessary for assistance in this case with leg positioning, hip reductions, retraction and protection of neurovascular structures as well as assistance in implantation wound closure and dressing application. Procedure: Preop Diagnosis?Left hip degenerative joint disease Post-op diagnosis: Left hip degenerative joint disease Procedure done: Left total hip arthroplasty?robotic assisted Mauri?posterior approach Implants: York total hip arthroplasty implants 52 mm cluster hole acetabular shell 6.5 mm x (25 and 15 mm) acetabular screw Alpha code E MDM cementless metal liner Mimi insignia hip stem standard offset size 5 Alpha code E MDM -4mm head Surgeon: Lalo Forman DO Estimated blood loss: 150 mL IV fluids: 900 mL Urine output: 200 mL Complications: None Condition: stable Disposition: floor Brief History: Patient's been seen and worked up by myself in the outpatient setting and findings consistent with Left hip degenerative joint disease. She has failed conservative treatment this is causing her severe pain and decreased mobility. We talked about his treatment options as far as nonoperative and operative intervention. Patient ultimately through shared decision-making would like to proceed with a Left total hip arthroplasty. we detailed out the risk benefits complications alternatives to surgical and nonsurgical treatment options. Understanding risk for surgery patient elects to proceed with Left total hip arthroplasty robotic assisted Mauri utilizing a?posterior approach. All questions answered. Patient elects proceed with surgery today. Procedure: Patient was seen evaluate in preoperative holding area.? Consent was reviewed and signed with patient.? Correct extremity was then marked.? Patient seen evaluate by anesthesia department once cleared for surgery pt was taken back to the operative suite.? Patient underwent spinal anesthesia per the anesthesia department.? This point time pt was then placed on the operative suite and table.? Pt was then placed in lateral decubitus patient worked with the Left hip up.? Patient was secured in the lateral decubitus position with pegboard. All bony prominences well-padded he was properly secured to the bed.? At this point time the Left lower extremity was then prepped and draped in standard orthopedic fashion with care not to drape out the iliac wing for pelvic array placement.? Final timeout performed.? Patient received appropriate preoperative antibiotics. Started off with establishment of my pelvic array pins.? A small longitudinal incision was made directly over the iliac wing.? Sharp scalpel excision through skin and subcutaneous tissue directly onto bone.? Next I then loaded my pelvic pin.? This was then drilled through the iliac wing corridor with excellent fixation.? Next I then loaded the guide which was placed directly onto bone and then subsequently placed 2 more pins to secure fixation.? Next the pelvic array was then sent had excellent visualization with the Mauri robot and was secured. EKG pad was placed on the distal lateral aspect of the femur and sterile aseptic technique and use as my distal reference point. Next I proceeded with my standard?posterior approach.? Sharp scalpel through skin and subcutaneous tissue this was centered over the greater trochanter.? I then utilized a Figueroa elevator over the gluteus max fascia.? Next the fascia was then split longitudinally with bipolar electrocautery.? Next a Charnley retractor was then placed.? All bone was then placed into the abductors.? A standard full-thickness release of the piriformis and the short external rotators along with the capsule to grade 1 full thick sleeve for later repair was then placed straight down to the lesser trochanter.? Lesser trochanter was then subsequently identified.? Prior to dislocating the hip we then placed our greater trochanter femur checkpoint.? We marked our appropriate checkpoint for referencing on pelvic array.? At this point in time we then established both of our checkpoints as well as referencing for leg lengths I utilized the EKG pad as my distal reference point. The legs were marked and traced to have appropriate position on the drapes to allow for accurate reading.? Preoperative leg lengths set. Once this was then established I then proceeded with dislocation of the femoral head.? At this point Hohmann's were then placed superiorly and inferiorly along the femoral neck.? The sciatic nerve was protected throughout this case.? At this point time I then utilized the Mauri robot and referencing point to reference different aspects along the femoral head and neck for my appropriate neck length.? These were referenced on the inferior mid substance as well as up into the superior shoulder of the femoral neck.? This marked my oscillating saw was used to make my femoral neck cut.? Femoral head was then removed. Next the leg was placed in appropriate position and my anterior and?posterior acetabular retractors then placed.? Next I excised the labrum and then remove the pulvinar.? I did do a small release of the inferior capsule which was severely taut to allow for easier placement of my reamers as well as reduction.? Acetabulum was thoroughly irrigated. At this point in time keeping my retractors in place I subsequently loaded up the [employer] robot for my acetabular reaming.?? Next I then set my 52 reamer under the [employer] robot and subsequently held this with appropriate preplanned preop planned version of 40 degrees of abduction angle as well as 20 degrees of anteversion.? This preoperative plan was then subsequently made to accommodate for ranges of motion of impingement?that was assessed preoperatively utilizing the [employer] robotic software technology. I then subsequently reamed this to the appropriate depth with 52 mm reamer.? We opened up the acetabular shell clusterhole of the 52 mm Mimi this was then loaded onto my impacting system and then I subsequently impacted this to appropriate depth.? This was then removed from the robot and I used the Mauri probe at the center to confirm on the CT scan?that this was down on bone which it was.? Next I then drilled and placed 2 acetabular screws with excellent fixation these were drilled and measured to be 25 and 15 mm this was in the?posterior superior aspect of the acetabulum had excellent bite and fixation.? The cup was solid and had excellent press-fit fixation. next, opened the alpha code E MDM cementless liner then subsequently placed in appropriate position and impacted into place.? At this point time I then utilized a small rongeur to clear off the shoulder of the femoral neck to clear out the soft tissue envelope for my box osteotome.? Next box osteotome was used a canal finder was placed as well as a lateral lysing rattail rasp.? Once I was appropriately lateralized I then sequentially broached up to a size 5 femoral stem.? This was impacted to appropriate depth and flushed with my femoral neck cut. Calcar was intact throughout broaching. Once patient had snug fit with r otational stability with a size 5 stem I then started off with our minus options just for reduction and after multiple trials attempts it was deemed to have an excellent leg length as well as stability with a -4 mm option on the neck length. The hip was taken through range of motion and had excellent stability with hip flexion and internal rotation with no evidence of instability had an slightly increased shuck.? This point time utilized the Mauri probe from our femur checkpoint down to her distal checkpoint. Satisfied with this trial implants, at this point I dislocated the hip and then called for my final implants with excellent stability in all planes.? Opened up a size 5 Mimi insignia hip stem standard offset.? My trials were then removed and then subsequently impacted my York insignia size 5 standard offset hip stem to the same level.? This point in time I trialed up to a -4 mm neck length which helped match with Mauri robotic assistance had appropriate leg lengths comparative to the contralateral hip and this was confirmed clinically as well as had excellent stability I felt as though this was best combination with leg lengths being equal as well as with stability and elected for the final -4 mm MDM femoral head. Final MDM femoral head component was then opened and the trunnion was dried and this was impacted with excellent fixation and the hip was subsequently reduced.? We measured our final leg lengths which were appropriate patient had excellent stability in all ranges of motion.? This point time a robotic pins and checkpoints were removed.? I remove the femur checkpoint as well as my pelvic array and iliac wing pins.? Appropriate counts were then made.? This point time thoroughly irrigated the wound bed with pulse lavage.? Vancomycin powder was then sprinkled into the wound bed.? I then performed a standard capsular and external rotator repair utilizing #5 Ethibond and this was tied and repaired through bone tunnels hip, sciatic nerve was protected throughout this portion of the case. Was then kept in abduction external rotation and subsequently closed the fascial layer with Ethibond suture as well as running strata fix suture.? I then closed the deep subcutaneous layer as well as superficial subcutaneous layer with running strata fix suture as well as 3-0strata fix for skin.? Prineo glue dressing was then placed over the skin.? I then irrigated the pelvic array pin site.? There is were then closed with interrupted 0, 2-0 Vicryl suture and Monocryl as well as Prineo glue for the skin.? Incisions were then covered with vero and Silverlon dressing.? Patient was awakened from anesthesia and taken to PACU in stable condition Disposition: Patient taken to PACU in stable condition.? Patient will receive appropriate discharge instructions as well as DVT prophylaxis and pain medication.? Patient will be admitted to the floor for observation should be evaluated by the internal medicine team for medical management.? Patient received appropriate DVT prophylaxis as well as pain medication PT/OT weightbearing as tolerated Left lower extremity with?posterior hip precautions, Postoperative Abx and TXA.? We will follow-up with patient in the office in 2 weeks.? Patient understands agrees with current plan.? All questions answered.
--- NOTE | 2024-09-05 09:51 | XR_ITS ---
WS: [id number] XR hip LT 2-3V wo/w pel* 75110 REASON FOR EXAM: post op left ADRIENNE FINDINGS: Total left hip arthroplasty. Components of the arthroplasty are intact and in proper position and alignment. No focal bony abnormality. XR/XR hip LT 2-3V wo/w pel* 53557 IMPRESSION: Total left hip arthroplasty without abnormality.
--- NOTE | 2024-09-05 09:59 | PM.PACU ---
PACU note Narrative: Patient is a 69-year-old female that just underwent left total hip arthroplasty. Pt transferred to PACU in stable condition. Dressing is dry. pt is awake and alert. Distal pulses are palpable toes are warm and well-perfused. Cap refill is normal and under 2 seconds. Pain is controlled. Unable to further assess motor or sensory to left lower leg due to residual spinal block. Exam: awake Disposition: admitted
--- NOTE | 2024-09-05 10:32 | PC.NURSE ---
1030 - pt is unable to move tyrel lower ext due to spinal - Dr Forman aware - left ppp
--- NOTE | 2024-09-05 10:51 | PC.NURSE ---
- 1043 - pt accepted onto floor by Liza, GODWIN pt in no distress upon this nurse exiting care - 182/91 - pulse 79 02 97 temp - 100% room air - call light within reach
[2024-09-05] MEDS: lactated ringers 1,000 ML 75 ML IV (11:49)
--- NOTE | 2024-09-05 11:58 | PM.CONSULT ---
Providers/Reason For Consult Consulting Physician/Specialty*: Dr. Gunnar Tapia - Family Medicine, Hospitalist Team Reason for Consult*: Postsurgical management of diabetes and hypertension. Requesting Physician: Dr. Forman Attending Physician: Lalo Forman DO Primary Care Provider: MARIA GUADALUPE Reinoso History of Present Illness History of Present Illness Ashley Graff is a 69 year old female with a past medical history of type 2 diabetes and hypertension. She is recently back from a total hip arthroplasty of the left hip. Consult was requested for hospitalist team for management of diabetes and hypertension. She appears in a well state of health. For her diabetes she generally takes glipizide twice a day and metformin twice a day. She also takes losartan for her blood pressure. Her blood pressure after surgery at this time is 179/78. She has been working with physical therapy and sitting up some. Her last A1c is from 08/23/2024 and was 6.1 which is well-controlled. Her blood sugars on today's labs showed 151. States that her pain is well-controlled currently. She denies other complaints at this time. Review of Systems General: Reports: 10 or more systems reviewed and unremarkable except in HPI and below Medications/Allergies Home Medications ?Medication ?Instructions ?Recorded ?Confirmed ?Last Taken ?Type custom inserts 3010 #1 ea 05/11/24 09/05/24 Unknown Rx biotin 1,250 mcg-collagen 150 1 tab PO DAILY 08/03/24 09/01/24 Unknown History mg-vit D-E-S-min-herbal 353 chew tablet glipizide 5 mg tablet 5 mg PO BID 09/01/24 09/05/24 09/04/24 History losartan 50 mg tablet 50 mg PO DAILY 09/01/24 09/05/24 09/04/24 History metformin 1,000 mg tablet 1,000 mg PO BID 09/01/24 09/05/24 09/04/24 History Allergies Allergy/AdvReac Type Severity Reaction Status Date / Time No Known Allergies Allergy Verified 09/05/24 06:04 Current Medications Generic Name Dose Route Start Last Admin Trade Name Freq PRN Reason Stop Dose Admin Lactated Ringer's 1,000 mls @ 75 mls/hr 09/05/24 11:21 09/05/24 11:49 Lactated Ringers IV 75 mls/hr .[id number] DANNY Administration PFSH Acute PFSH: Medical History Degenerative joint disease of left hip Left knee DJD Osteoporosis HTN (hypertension) DM w/o complication type II Surgical History Hx of removal of ovary H/O mastectomy Family History Mother Cancer Social History Smoking and tobacco/nicotine status: never used tobacco/nicotine Alcohol intake: never Substance/Drug Use: never Adopted: No Caregiver/support person: No Lives independently: No Household members: spouse Marital status: service: No Current occupational status: retired Sexually active: Yes Do you think of yourself as: Straight/Heterosexual Current gender identity: Female Vitals/I&O/Wt Last Vital Signs Temp 97.8 F 09/05/24 10:30 Pulse 74 09/05/24 10:35 Resp 18 09/05/24 10:35 BP 181/86 09/05/24 10:35 Pulse Ox 100 09/05/24 10:35 O2 Del Method Room Air 09/05/24 10:35 09/04/24 09/05/24 09/05/24 22:59 06:59 14:59 Intake Total 100 / 100 1100 / 1100 Output Total 350 / 350 Balance 100 / 100 750 / 750 Weight last 48 hrs Weight 206 lb Physical Exam Narrative: General: Cooperative patient in no apparent distress. Well developed. HEENT: Normocephalic, Atraumatic. External ears normal. Nasal passages patent without drainage. MMM. Heart: RRR. Resp: LCTA. No respiratory distress, no use of accessory muscles. Abd: Soft, non-tender. Non-distended. Extremities: No edema. Left hip surgical scarring. Skin: No rash or lesions on exposed areas. Urinary Catheter Management: Cruz: Cath Placed During This Visit: yes Urinary Catheter Date of Insertion: 09/05/24 Urinary Catheter Time of Insertion: 07:30 Data 09/05/24 06:10 09/05/24 06:10 A&P Assessment and plan (1) HTN (hypertension): Qualifiers: Hypertension type: unspecified Qualified Code(s): I10 - Essential (primary) hypertension (2) Non-insulin dependent type 2 diabetes mellitus: (3) Left hip pain: Plan 69-year-old female admitted for left hip pain and osteoarthritis, who underwent left total hip arthroplasty earlier this morning. Her most recent A1c was 6.1 which was obtained on 08/23/2024. She generally takes glipizide and metformin for management. Her blood sugars have been pretty well-controlled in the hospital so far with her highest sugar recorded at 151. She also takes losartan for her blood pressure. Most recent check was 179/78 after walking with physical therapy. At this time I will restart her glipizide and hold on her metformin until tomorrow. We can restart her losartan for now as her pressures are stable. Plan to recheck her labs in the a.m. to ensure no problems postsurgically. Will hold on sliding scale insulin for now. Thank you for involving the hospitalist team in the care of this patient. PDMP PDMP Reviewed: Not Reviewed Consult Attestations Medical Necessity Statement: Per primary team -orthopedics. Coding Level of Care Code Acute Code for Chg Fwd Low MDM includes number and complexity of problems actively addressed during encounter, amount and/or complexity of data reviewed/ordered and described risk of complication, morbidity or mortality of management as documented Diagnoses Hypertension, unspecified type I10 Hypertension type: unspecified Non-insulin dependent type 2 diabetes mellitus E11.9 Left hip pain M25.552
--- NOTE | 2024-09-05 13:16 | ANE.PACU2 ---
Inpatient post-anesthesia follow up: Airway intact: Yes Vital signs: Temperature 97.3 F Pulse Rate 90 Respiratory Rate 18 Blood Pressure 179/78 Pulse Oximetry 95 Oxygen Delivery Me thod Room Air Oxygen Flow Rate Fraction of Inspir ed Oxygen Hydration adequate: Yes Nausea and vomiting: No Pain level: 1 Mental status: Baseline
[2024-09-05] MEDS: calcium carb-vit d 600mg/400unit 1 Tablet 1 EACH PO (17:24)
[2024-09-05] MEDS: iron polysaccharide complex 150 mg Capsule PO (17:24)
[2024-09-05] MEDS: sennosides-docusate Tablet 2 TAB PO (17:24)
[2024-09-05] MEDS: mupirocin oint 22 gm 1 APPLIC NASAL (17:25)
[2024-09-05] MEDS: losartan 50 mg Tablet PO (17:27)
[2024-09-05] MEDS: ketorolac 30 mg/mL INJ 15 MG IVP (17:33)
[2024-09-05] MEDS: chlorhexidine gluconate 0.12% Btl 473 mL 30 ML MUCOUS MEM (20:27)
[2024-09-06 00:25] VITALS: BP 174/81; PULSE 89; RESP 18; TEMP 36.9; O2SAT 96
[2024-09-06] MEDS: lactated ringers 1,000 ML 75 ML IV (01:11)
[2024-09-06] MEDS: ketorolac 30 mg/mL INJ 15 MG IVP (01:17)
[2024-09-06 04:44] VITALS: BP 158/75; PULSE 95; RESP 18; TEMP 36.9; O2SAT 95
[2024-09-06 05:30] LABS: Basophils % 0.4 %; Eosinophils # 0.2 10^3/uL (0.0-0.8); Eosinophils % 2.1 %; Hematocrit 32.2 % (36-47); Lymphocytes # 1.4 10^3/uL (0.8-4.8); Lymphocytes % 17.6 %; Mean Corpuscular HGB Conc 31.7 g/dL (30-55); Mean Corpuscular Hemoglobin 29.3 pg (27-33); Mean Corpuscular Volume 92.5 fl (85-98); Monocytes # 0.5 10^3/uL (0.2-0.9); Monocytes % 6.8 %; Neutrophils # 5.58 10^3/uL (1.8-7.7); Neutrophils % 72.8 %; Nucleated Red Blood Cells % 0 %; Platelet Count 342 10^3/cmm (157-399); Red Blood Count 3.48 10^6/uL (3.85-5.65); Red Cell Distribution Width 13.5 % (12.1-15.1); White Blood Count 7.66 10^3/uL (3.29-11.43)
[2024-09-06] MEDS: acetaminophen 1,000 MG/100 ML PIGGYBACK 400 MG IV (05:35)
[2024-09-06 06:01] LABS: Anion Gap 15.7 (5-19); Blood Urea Nitrogen 16 mg/dL (8-23); Calcium 8.9 mg/dL (8.5-10.5); Carbon Dioxide 23 mmol/L (22-29); Chloride 102 mmol/L (98-107); Glomerular Filtration Rate 71.1 mL/min (90-130); Glucose 153 mg/dL (65-115); Osmolality Calculated 288 mOsm/kg (285-295); Potassium 3.7 mmol/L (3.5-5.1); Sodium 137 mmol/L (136-145)
[2024-09-06 07:38] VITALS: BP 148/69; PULSE 93; RESP 18; TEMP 36.8; O2SAT 96
[2024-09-06] MEDS: iron polysaccharide complex 150 mg Capsule PO (08:31)
[2024-09-06] MEDS: multivitamin therapeutic Tablet 1 TAB PO (08:31)
[2024-09-06] MEDS: apixaban 5 mg Tablet 2.5 MG PO (08:31)
[2024-09-06] MEDS: metformin 500 mg Tablet 1000 MG PO (08:31)
[2024-09-06] MEDS: sennosides-docusate Tablet 2 TAB PO (08:31)
[2024-09-06] MEDS: ceFAZolin 2,000 MG in sodium chloride 0.9% (plus) 50 ML 100 MG IV (08:31)
[2024-09-06 08:32] VITALS: BP 148/69
[2024-09-06] MEDS: calcium carb-vit d 600mg/400unit 1 Tablet 1 EACH PO (08:32)
[2024-09-06] MEDS: losartan 50 mg Tablet PO (08:32)
--- NOTE | 2024-09-06 09:20 | PC.CHAP ---
Pastoral Care Encounter/Spiritual Assessment Type of Contact [] Declined receivables specialist visit [] Patient/Family/Request visit [] Outpatient visit [] Follow-up visit [] Physician referral [] Code/Alert [x] Routine visit [] Staff referral [] Actively dying [] Patient sleeping [] Family support [] [] Out of room [] Palliative care [] [] Receiving care in room [] Pre-surgical visit [] Trauma [] Long length of stay [] ICU visit [] Other: Relational/Emotional Strength [x] Patient feels connected with others/family/visitors/staff [] Distress [] Loneliness/isolation [] Abandonment Spirituality of Patient [x] Person of So [] Attends Bahai of their So [x] Believes in Prayer [] Reads Bible or Taoism materials [] There are Spiritual issues to be addressed Chore Worker Interventions [x] Prayer [x] Active listening [] Non-anxious presence [x] Spiritual/emotional support [] Crisis/trauma care [] Spiritual counseling [] Bereavement support [] Provided bereavement packet [] Provided Bible/devotional materials [] Provided toy/stuffed animal, coloring book to patient or family member [] Provided Communion [] Anointing/[place] [] Salvation [x] Completed spiritual assessment [] Other: Impact on Illness or Injury [] Angry [] Fearful [] Anxious [] Often cries [] Exhaustion [] Unable to work [] Unable to attend mandaen [] Unable to walk/stand [] Unable to read [] Unable to drive [] Unable to eat/drink [] Unable to sleep [] Unable to be with family [] Patient intubated [] Other: Summary Time spent with patient 5 min
[2024-09-06 11:17] VITALS: BP 179/77; PULSE 92; RESP 18; TEMP 36.6; O2SAT 98
--- NOTE | 2024-09-06 11:56 | P.DS_ITS ---
Discharge Providers Date of Admission: 09/05/24 09:22 Date of Discharge: September 06, 2024 Attending Provider at Admission: Lalo Forman DO Attending Provider at Discharge: Lalo Forman DO Consults: Dr. Barba?hospitalist Primary Care Provider: MARIA GUADALUPE Reinoso Diagnoses at Discharge Discharge Diagnosis (1) HTN (hypertension): Status: Chronic Qualifiers: Hypertension type: unspecified Qualified Code(s): I10 - Essential (primary) hypertension (2) Non-insulin dependent type 2 diabetes mellitus: Status: Chronic (3) Left hip pain: Status: Acute Reason for Visit Reason for Visit: M16.12, D16.9 Brief History: Status post left total hip arthroplasty Hospital Course Hospital Course Patient was brought to the hospital through the preoperative holding area with plan for left total hip arthroplasty for left hip dengerative joint disease. Once cleared by anesthesia for surgery subsequently was taken back to the operative suite underwent anesthesia per the anesthesia department and then underwent left total hip arthroplasty with Mauri robotic assistance posterior approach without any complications. Patient was then subsequently taken back to PACU in stable condition recovering well. Once recovered, patient was then subsequently admitted to the floor postoperatively. Internal medicine was consulted for medical management assistance. Patient weightbearing as tolerated to the right lower extremity, posterior hip precautions. PT/OT. Pain control. DVT prophylaxis. Postoperative antibiotics and TXA. dressing was change as needed. Internal medicine was on board and appreciate their medical management and assistance. Pt was determined on postoperative day 1 the patient was stable for discharge from orthopedic as well as internal medicine standpoint. Patient's labs were monitored daily. Patient will receive appropriate pain medication as well as DVT prophylaxis postoperatively. Appropriate discharge instructions as well. Patient was then discharged in stable condition. Patient will discharge home. Pt will follow-up with Orthopedics in the office in 2 weeks. Patient understands and agrees with current plan. All questions answered. Understands there is any issues or concerns and contact the office. Physical Exam Narrative: Left hip examination: Dressing on in place, clean dry and intact. Jazz incisional VAC dressings on in place with good seal no evidence of saturation. Patient has normal postoperative swelling and tenderness to palpation to the hip. Compartments are soft compressible,'s calf soft and nontender. Sensations intact to light touch distally. Distal pulses are palpable. Patient is able to wiggle toes as well as plantarflex and dorsiflex ankle. Urinary Catheter Management: Cruz: Cath Placed During This Visit: yes, but has since been removed by the nurse Reason for Continuing Indwelling Catheter: Perioperative Use in Selected Surgeries Urinary Catheter Date of Insertion: 09/05/24 Urinary Catheter Time of Insertion: 07:30 Date Urinary Catheter Removed: 09/05/24 Time Urinary Catheter Discontinued: 15:20 Discharge Data Studies Completed and Pending Completed Studies During Hospitalization Category Date Time Status XR hip LT 2-3V wo/w pel* [id number] Routine Exams 09/05/24 09:51 Completed Pending at discharge Category Date Time Status Basic Metabolic Panel AM LABS Lab 09/07/24 04:00 Ordered Basic Metabolic Panel AM LABS Lab 09/08/24 04:00 Ordered Complete Blood Count w/Auto AM LABS Lab 09/07/24 04:00 Ordered Complete Blood Count w/Auto AM LABS Lab 09/08/24 04:00 Ordered Pathology: Surgical [PTH] Routine Pth 09/05/24 08:45 Received Radiology Impressions Hip/Pelvis X-Ray 09/05/24 09:51 IMPRESSION: Total left hip arthroplasty without abnormality. Laboratory Results WBC 7.66 10^3/uL (3.29-11.43) 09/06/24 04:49 RBC 3.48 10^6/uL (3.85-5.65) L 09/06/24 04:49 Hgb 10.20 g/dL (11.27-16.99) L 09/06/24 04:49 Hct 32.2 % (36-47) L 09/06/24 04:49 MCV 92.5 fl (85-98) 09/06/24 04:49 MCH 29.3 pg (27-33) 09/06/24 04:49 MCHC 31.7 g/dL (30-55) 09/06/24 04:49 RDW 13.5 % (12.1-15.1) 09/06/24 04:49 Plt Count 342 10^3/cmm (157-399) 09/06/24 04:49 MPV 9.0 fL (7.4-10.4) 09/06/24 04:49 Neut % (Auto) 72.8 % 09/06/24 04:49 Lymph % (Auto) 17.6 % 09/06/24 04:49 [place] % (Auto) 6.8 % 09/06/24 04:49 Eos % (Auto) 2.1 % 09/06/24 04:49 Baso % (Auto) 0.4 % 09/06/24 04:49 Neut # (Auto) 5.58 10^3/uL (1.8-7.7) 09/06/24 04:49 Lymph # (Auto) 1.4 10^3/uL (0.8-4.8) 09/06/24 04:49 [place] # (Auto) 0.5 10^3/uL (0.2-0.9) 09/06/24 04:49 Eos # (Auto) 0.2 10^3/uL (0.0-0.8) 09/06/24 04:49 Baso # (Auto) 0.0 10^3/uL (0.0-0.1) 09/06/24 04:49 Nucleated RBC % (auto) 0 % 09/06/24 04:49 Nucleated RBCs # 0.0 /100WBC 09/06/24 04:49 Sodium 137 mmol/L (136-145) 09/06/24 04:49 Potassium 3.7 mmol/L (3.5-5.1) 09/06/24 04:49 Chloride 102 mmol/L (98-107) 09/06/24 04:49 Carbon Dioxide 23 mmol/L (22-29) 09/06/24 04:49 Anion Gap 15.7 (5-19) 09/06/24 04:49 BUN 16 mg/dL (8-23) 09/06/24 04:49 Creatinine 0.8 mg/dL (0.5-0.9) 09/06/24 04:49 GFR Calculation 71.1 mL/min (90-130) L 09/06/24 04:49 Glucose 153 mg/dL (65-115) H 09/06/24 04:49 POC Glucose 131 mg/dL (70-110) H 09/05/24 06:24 Calculated Osmolality 288 mOsm/kg (285-295) 09/06/24 04:49 Calcium 8.9 mg/dL (8.5-10.5) 09/06/24 04:49 Blood Type A Positive 09/05/24 06:10 Rho(D) Type Rh positive 09/05/24 06:10 Antibody Screen Negative 09/05/24 06:10 Vitals Last Vital Signs Temp 97.9 F 09/06/24 11:17 Pulse 92 09/06/24 11:17 Resp 18 09/06/24 11:17 BP 179/77 09/06/24 11:17 Pulse Ox 98 09/06/24 11:17 O2 Del Method Room Air 09/06/24 11:17 Discharge Plan Discharge Patient Disposition: Home Condition: Stable Prescriptions: New Eliquis 2.5 mg tablet 2.5 mg PO BID 35 Days Qty: 70 0RF oxycodone 5 mg tablet 5 mg PO Q6H PRN (Reason: pain postop) 7 Days Qty: 28 0RF Continued (DME) custom inserts [id number] See Rx Instructions .Route .MEDSUPPLY Qty: 1 0RF Rx Instructions: As directed to the lillian benz [id number]-C-aas-herb 353 1,250 mcg-150 mg-225 mcg tablet,chewable 1 tab PO DAILY losartan 50 mg tablet 50 mg PO DAILY Rx Instructions: TAKE 1 TABLET BY MOUTH EVERY DAY metformin 1,000 mg tablet 1,000 mg PO BID Rx Instructions: TAKE 1 TABLET BY MOUTH TWICE A DAY glipizide 5 mg tablet 5 mg PO BID Rx Instructions: TAKE 1 TABLET BY MOUTH TWICE A DAY No Action hydrocodone-acetaminophen 5-325 mg tablet 1 tab PO Q6H PRN (Reason: pain) 5 Days Qty: 20 0RF Discharge Orders: Discharge Order (Routine); Ordered 09/06/24 Ordered By: Lalo Forman Other Ambulatory Orders: DME: Walker (Order) Location: None Selected Ordered By: Adriana Bustillo Physical Therapy Eval and Treat Outpatient (Order) Timeframe: 3 Days Facility: [facility] - Location: Physical Therapy Ordered By: Lalo Forman Referrals: Lalo Forman DO [Physician] - 09/20/24 2:30 pm Discharge Diet: Regular Discharge Activity: Limit activity as instructed Patient Instructions: Oxycodone, Rapid Release (By mouth), Apixaban (By mouth), Acute Wound Care (DC), Total Hip Replacement (GEN), Opioid Safety, Post Anesthesia Care Activity Restrictions/Additional Instructions: Orthopedic discharge instructions: Follow-up with primary care provider in the next 3 to 7 days main Left hip--Jazz Dressing--Keep dressing on and dry. After 3 days you can remove some of the dressing and shower. disconnect battery pack when showering. Jazz dressing will stay on until follow up appt in 2 weeks. The battery pack for the dressing will at 5-7 days. Battery pack can be removed and discarded once batteries . Patient should keep dressings clean dry and intact Okay to shower over dressings if they do become wet these should be removed and new dressings applied Upper small left hip incision--Keep incisions clean dry and intact, leave Silverlon bandage dressings on in place for 7 days after that may rinse incisions with warm soapy water pat dry and redress with a dry dressing Weight-bear as tolerated to operative lower extremity Posterior hip precautions as instructed by physical therapy--posterior avoid hip flexion past 90 degrees, adduction, avoid internal rotation When sleeping or lying in bed in supine position use abduction pillow to prevent legs from crossing midline Ice as needed for pain and swelling Take pain medication as prescribed Take antinausea medication as needed May supplement for pain with Tylenol twpm-iqo-gltaabg as needed(1000 mg every 8 hours-do not exceed more than 3000mg in 24-hour period) May supplement with ibuprofen as needed Supplement with Citracal vitamin D for bone health and healing Pain medication can cause constipation. take fncz-wdu-vffihvc stool softeners and or MiraLAX. Take blood thinner as prescribed (Eliquis) Follow-up in the orthopedic office in 2 weeks Contact the office for any questions or concerns Discharge Attestations Time Spent in Discharge Care*: less than 30 min Quality Metrics Clinical Quality Measures [ No reported AMI, CVA or VTE this stay] Coding Level of Care Code Acute Code for Chg Fwd Diagnoses Hypertension, unspecified type I10 Hypertension type: unspecified Non-insulin dependent type 2 diabetes mellitus E11.9 Left hip pain M25.552 Time Spent (min) 25
[2024-09-06 12:13] VITALS: BP 148/69; PULSE 92; RESP 18; TEMP 36.6; O2SAT 98
== END 2024-09-06 12:30 | disposition home or self-care (01) ==
LOC: MEDSURG 09:24
PROVIDERS: Physician Assistant; Admitting Provider Student in an Organized Health Care Education/Training Program; PCP Nurse Practitioner Family; Visit Provider Student in an Organized Health Care Education/Training Program
PROC: 8E0Y0CZ Robotic Assisted Procedure of Lower Extremity, Open Approach (ICD-10-PCS; CPT 27130; principal; 2024-09-05 07:00)
DX: M16.12 Unilateral primary osteoarthritis, left hip (principal); I10 Essential (primary) hypertension; E11.9 Type 2 diabetes mellitus without complications; Z79.84 Long term (current) use of oral hypoglycemic drugs; M81.0 Age-related osteoporosis without current pathological fracture; Z86.718 Personal history of other venous thrombosis and embolism
CPT/HCPCS: 27130; 20985; 36415; 36416; 51702; 73502; 80048; 82962; 85025; 86850; 86900; 88304; 88311; 97116; 97161; 97165; 97530; C1713; C1776; G0378; J0131; J0690; J1885; J2250; J2371; J2704; J3370; J7030; J7120; J9999

== ENCOUNTER 2024-09-09 14:32 | Emergency (ER) | payer MEDICARE, BC, SELFPAY ==
[2024-09-09 14:42] VITALS: BP 143/84; PULSE 94; RESP 17; TEMP 36.6; O2SAT 97; BMI 32.7
--- NOTE | 2024-09-09 15:16 | ED_ITS ---
HPI - Skin/Abscess/Foreign Bdy 2 General: Chief complaint: Skin/Abscess/Foreign Body Stated complaint: rash covering body Time Seen by Provider: 09/09/24 15:09 Source: patient and family Mode of arrival: ambulatory Limitations: no limitations History of Present Illness: This patient presented to the Emergency Department because of concerns about a skin rash. She states that she had left hip arthroplasty performed at this facility on Thursday and was begun on 2 new medications which included oxycodone for pain as well as apixaban for DVT prophylaxis. She states the rash initially seemed to be located in the region of the belt line of her abdomen and then progressed to her upper thighs and is now involves her lower extremities including her feet. She says it does itch. She denies any shortness of breath difficulty swallowing etc. No prior history of drug allergies. She has only taken 1 oxycodone on Thursday and has not taken any more of any opiate medications. No prior history of drug allergies. She says she been eating and drinking normally. She is doing fairly well with ambulation with a walker. She denies any blood in her stools, dark tarry stools, blood in her urine etc. MD complaint: rash Associated symptoms: Deny chills, fever(s), nausea or vomiting Related Data Home Medications ?Medication ?Instructions ?Recorded ?Confirmed biotin 1,250 mcg-collagen 150 1 tab PO DAILY 08/03/24 09/09/24 mg-vit V-O-Y-min-herbal 353 chew tablet glipizide 5 mg tablet 5 mg PO BID 09/01/24 5 losartan 50 mg tablet 50 mg PO DAILY 09/01/2409/30 metformin 1,000 mg tablet 1,000 mg PO BID 09/01/2409/30 ondansetron 4 mg disintegrating 4 mg PO Q8H PRN Post o p Vomiting 09/09/24 09/09/24 tablet Previous Rx's ?Medication ?Instructions ?Recorded custom inserts 3010 #1 ea 05/11/24 hydrocodone 5 mg-acetaminophen 325 1 tab PO Q6H PRN pa in 5 days #20 09/09/24 mg tablet tabs tizanidine 4 mg capsule 4 mg PO TID PRN muscle spast icity 09/09/24 #42 caps Allergies Allergy/AdvReac Type Severity Reaction Status Date / Time No Known Allergies Allergy Verified 09/09/24 08:33 Review of Systems 2 Const: Denies: fever(s), chills or body aches Eyes: Denies: change in vision ENMT: Denies: throat pain, odynophagia, nasal discharge or nasal congestion Card: Denies: chest pain or palpitations Resp: Denies: dyspnea, productive cough, non-productive cough or wheezing GI: Denies: abdominal pain, nausea, vomiting, hematemesis, hematochezia or melena : Denies: difficulty voiding, urinary frequency or hematuria Musc: Denies: neck pain or back pain Skin/Breast: Reports: rash and pruritus Neuro: Denies: headache(s), numbness in extremities or weakness in extremities Psych: Denies: anxiety or depression All/Imm: Denies: urticaria, throat swelling, tongue swelling or facial swelling PFSH ED 2 PFSH: Medical History Degenerative joint disease of left hip Left knee DJD Osteoporosis HTN (hypertension) DM w/o complication type II Surgical History Hx of removal of ovary H/O mastectomy Family History Mother Cancer Social History Smoking and tobacco/nicotine status: never used tobacco/nicotine Alcohol intake: never Substance/Drug Use: never Adopted: No Caregiver/support person: No Lives independently: No Household members: spouse Marital status: service: No Current occupational status: retired Sexually active: Yes Do you think of yourself as: Straight/Heterosexual Current gender identity: Female Physical Exam 2 Narrative: EXAM NARRATIVE: She is alert no acute distress makes good eye contact speaks in complete sentences without difficulty. Const: COMMON NORMALS: patient oriented x3 and alert GENERAL APPEARANCE: c ooperative and comfortable NUTRITIONAL APPEARANCE: overweight HENMT: COMMON NORMALS: Normal nasal mucous membranes and turbinates present, moist oral mucous membranes and oropharynx normal NOSE: Normal nasal mucous membranes and turbinates present Eye: COMMON NORMALS: Equal, round and reactive pupils present, conjunctivae normal and no scleral icterus CONJUNCTIVA: Yes conjunctivae normal PUPIL: Yes Equal, round and reactive pupils present Neck/C-Spine: COMMON NORMALS: full ROM Resp: COMMON NORMALS: normal respiratory effort, No retractions, No use of accessory muscles and clear to auscultation bilaterally AUSCULTATION: clear to auscultation bilaterally Cardio: COMMON NORMALS: regular rate, regular rhythm and Peripheral pulses 2+ throughout RATE: regular rate RHYTHM: regular rhythm HEART SOUNDS: M urmur heart sound present PERIPHERAL PULSES: Peripheral pulses 2+ throughout GI: COMMON NORMALS: Soft to palpation and non-tender PALPATION: Yes Soft to palpation Back/Pelvis: COMMON NORMALS: no thoracic nor lumbar tenderness and thoraco- lumbar ROM normal Extremity: COMMON NORMALS: full ROM, capillary refill normal, no calf tenderness and no pedal edema Neuro: COMMON NORMALS: patient oriented x3, moves all extremities, no focal motor deficits and no sensory deficits noted SENSORIUM/ORIENTATION: Yes alert Psych: COMMON NORMALS: mental status grossly normal Skin: NARRATIVE SKIN EXAM: Skin examination is remarkable for a salmon to red macular rash located on the anterior posterior abdomen in the area of the belt line but also extends down into the lower abdomen and inguinal creases in the upper thighs bilaterally. She also has involvement of both lower extremities from approximately mid calf down to her feet. These are all Sidell macules with no confluence. They do not eduardo. There is no excoriated areas. Course 2 Reevaluation(s): Reevaluation #1: This appears to be a DOAC related rash. There is no evidence of thrombus cytopenia, anemia, kidney dysfunction. I began to discuss the need for switching her to low molecular weight heparin and at that time she informed me that she did get a rash with previous bridging of low molecular weight heparin to Coumadin with a treatment of a DVT many years ago. Time: 16:18 Consultations: Consultation #1: Discussed with orthopedics on-call and in light of her rash went to her apixaban as well as a prior rash with low molecular weight heparin they recommended full- strength aspirin as its within the [place] [employer] guidelines. Time: 16:47 Vital Signs: Vital signs: Vital Signs Temperature 97.8 F 09/09/24 14:42 Pulse Rate 94 09/09/24 14:42 Respiratory Rate 17 09/09/24 14:42 Blood Pressure 143/84 09/09/24 14:42 Pulse Oximetry 97 09/09/24 14:42 Oxygen Delivery Me thod Room Air 09/09/24 14:42 MDM - Skin/Abscess/Foreign Bdy Medicial Decision Making This patient presented as noted in the history of present illness. She had a recent left hip arthroplasty was started on Eliquis postoperatively for DVT prophylaxis. She is developed a progressive rash over the last 4 days since her surgery. Her only other contributing medicine was her oxycodone which she is only taken 1 dose of that on Thursday. She has never had an issue with opiates as regarding her rash etc. Her clinical exam suggest a drug-related rash. Her platelet count, renal function and INR were all normal. At this point does not suggest a more severe reaction as there is no mucous membrane, respiratory, etc. suggestive of anaphylactoid type reaction etc. She is stable to be discharged and will be continued on a full-strength aspirin per orthopedic surgery consulting recommendations. Medical Records I reviewed the patient's medical records. Lab Data I reviewed the patient's lab results. 09/09/24 15:23 09/09/24 15:23 Laboratory Results WBC 7.60 10^3/uL (3.29-11.43) 09/09/24 15:23 RBC 3.50 10^6/uL (3.85-5.65) L 09/09/24 15:23 Hgb 10.00 g/dL (11.27-16.99) L 09/09/24 15:23 Hct 32.7 % (36-47) L 09/09/24 15:23 MCV 93.4 fl (85-98) 09/09/24 15:23 MCH 28.6 pg (27-33) 09/09/24 15:23 MCHC 30.6 g/dL (30-55) 09/09/24 15:23 RDW 13.8 % (12.1-15.1) 09/09/24 15:23 Plt Count 416 10^3/cmm (157-399) H 09/09/24 15:23 MPV 8.7 fL (7.4-10.4) 09/09/24 15:23 Neut % (Auto) 60.6 % 09/09/24 15:23 Lymph % (Auto) 20.0 % 09/09/24 15:23 [place] % (Auto) 7.4 % 09/09/24 15:23 Eos % (Auto) 11.2 % 09/09/24 15:23 Baso % (Auto) 0.3 % 09/09/24 15:23 Neut # (Auto) 4.61 10^3/uL (1.8-7.7) 09/09/24 15:23 Lymph # (Auto) 1.5 10^3/uL (0.8-4.8) 09/09/24 15:23 [place] # (Auto) 0.6 10^3/uL (0.2-0.9) 09/09/24 15:23 Eos # (Auto) 0.9 10^3/uL (0.0-0.8) H 09/09/24 15:23 Baso # (Auto) 0.0 10^3/uL (0.0-0.1) 09/09/24 15:23 Nucleated RBC % (auto) 0 % 09/09/24 15:23 Nucleated RBCs # 0.0 /100WBC 09/09/24 15:23 PT 13.30 SECONDS (12.1-14.9) 09/09/24 15:23 INR 0.94 (0.8-1.2) 09/09/24 15:23 Sodium 139 mmol/L (136-145) 09/09/24 15:23 Potassium 4.0 mmol/L (3.5-5.1) 09/09/24 15:23 Chloride 103 mmol/L (98-107) 09/09/24 15:23 Carbon Dioxide 23 mmol/L (22-29) 09/09/24 15:23 Anion Gap 17.0 (5-19) 09/09/24 15:23 BUN 19 mg/dL (8-23) 09/09/24 15:23 Creatinine 0.8 mg/dL (0.5-0.9) 09/09/24 15:23 GFR Calculation 71.1 mL/min (90-130) L 09/09/24 15:23 Glucose 152 mg/dL (65-115) H 09/09/24 15:23 Calculated Osmolality 293 mOsm/kg (285-295) 09/09/24 15:23 Calcium 9.2 mg/dL (8.5-10.5) 09/09/24 15:23 No radiology studies performed this visit Discharge Plan Discharge Patient Disposition: Home Clinical Impression: Drug rash Condition: Stable Prescriptions: Discontinued Eliquis 2.5 mg tablet 2.5 mg PO BID 35 Days Qty: 70 0RF No Action (DME) custom inserts [id number] See Rx Instructions .Route .MEDSUPPLY Qty: 1 0RF Rx Instructions: As directed to the lillian benz [id number]-A-Q-L-dmf-herb 353 1,250 mcg-150 mg-225 mcg tablet,chewable 1 tab PO DAILY hydrocodone-acetaminophen 5-325 mg tablet 1 tab PO Q6H PRN (Reason: pain) 5 Days Qty: 20 0RF tizanidine 4 mg capsule 4 mg PO TID PRN (Reason: muscle spasticity) Qty: 42 2RF ondansetron 4 mg tablet,disintegrating 4 mg PO Q8H PRN (Reason: Post op Vomiting) losartan 50 mg tablet 50 mg PO DAILY metformin 1,000 mg tablet 1,000 mg PO BID glipizide 5 mg tablet 5 mg PO BID Discharge Orders: Discharge ED (Routine); Ordered 09/09/24 Ordered By: Vladislav Joe Referrals: Cat Barber FNP [Primary Care Provider] - Discharge Diet: Usual diet Discharge Activity: Use walker/crutches as instructed and As per PT/OT instructions Patient Instructions: Opioid Safety, Pain Management Activity Restrictions/Additional Instructions: As we discussed your rash that you have developed is likely due to your Eliquis. Do not take your Eliquis anymore. Begin a regular 325 mg aspirin daily with meals. The rash should fade over the next 24-48 hours as you are not taking the medication. If your rash does not improve, worsens or any other new or worsening symptoms develop return to this or the nearest emergency department for reevaluation. Print Language: Chadian Coding Level of Care Code ED [employer] Specialist for Marysol Diaz
[2024-09-09 15:29] LABS: Basophils % 0.3 %; Eosinophils # 0.9 10^3/uL (0.0-0.8); Eosinophils % 11.2 %; Hematocrit 32.7 % (36-47); Lymphocytes # 1.5 10^3/uL (0.8-4.8); Mean Corpuscular HGB Conc 30.6 g/dL (30-55); Mean Corpuscular Hemoglobin 28.6 pg (27-33); Mean Corpuscular Volume 93.4 fl (85-98); Mean Platelet Volume 8.7 fL (7.4-10.4); Monocytes # 0.6 10^3/uL (0.2-0.9); Monocytes % 7.4 %; Neutrophils # 4.61 10^3/uL (1.8-7.7); Neutrophils % 60.6 %; Nucleated Red Blood Cells % 0 %; Platelet Count 416 10^3/cmm (157-399); Red Cell Distribution Width 13.8 % (12.1-15.1)
[2024-09-09 15:50] LABS: Blood Urea Nitrogen 19 mg/dL (8-23); Calcium 9.2 mg/dL (8.5-10.5); Carbon Dioxide 23 mmol/L (22-29); Chloride 103 mmol/L (98-107); Creatinine Clr Calc Pharmacy 78.4554; Glomerular Filtration Rate 71.1 mL/min (90-130); Glucose 152 mg/dL (65-115); Osmolality Calculated 293 mOsm/kg (285-295); Sodium 139 mmol/L (136-145)
[2024-09-09 16:33] LABS: INR 0.94 (0.8-1.2)
[2024-09-09 17:15] VITALS: BP 147/78; PULSE 98; O2SAT 99
== END 2024-09-09 17:19 | disposition home or self-care (01) ==
PROVIDERS: Emergency Provider Emergency Medicine; PCP Nurse Practitioner Family
DX: L27.0 Generalized skin eruption due to drugs and medicaments taken internally (principal); Z79.84 Long term (current) use of oral hypoglycemic drugs; I10 Essential (primary) hypertension; T40.2X5A Adverse effect of other opioids, initial encounter; X58.XXXA Exposure to other specified factors, initial encounter
CPT/HCPCS: 36415; 80048; 85025; 85610; 99283

== ENCOUNTER → 2024-09-20 14:19 | Outpatient (BNVA) | payer MEDICARE, BC, SELFPAY | PROVIDERS: PCP Nurse Practitioner Family; Visit Provider Student in an Organized Health Care Education/Training Program | DX: Z96.642 Presence of left artificial hip joint (principal) | CPT/HCPCS: 73502; 99024 ==

== ENCOUNTER 2024-09-22 08:28 | Outpatient (RCR) | payer MEDICARE, BC, SELFPAY | END 2024-10-05 23:59 | disposition home or self-care (01) | LOC: SPT 08:28 | PROVIDERS: PCP Nurse Practitioner Family; Visit Provider Student in an Organized Health Care Education/Training Program | DX: M16.12 Unilateral primary osteoarthritis, left hip (principal) | CPT/HCPCS: 97110; 97161 ==

== ENCOUNTER 2024-10-06 05:00 | Outpatient (RCR) | payer MEDICARE, BC, SELFPAY | END 2024-11-03 14:06 | disposition home or self-care (01) | LOC: SPT 05:00 | PROVIDERS: PCP Nurse Practitioner Family; Visit Provider Student in an Organized Health Care Education/Training Program | DX: M16.12 Unilateral primary osteoarthritis, left hip (principal) | CPT/HCPCS: 97110 ==

== ENCOUNTER → 2024-11-16 10:31 | Outpatient (BNVA) | payer MEDICARE, BC, SELFPAY | PROVIDERS: PCP Nurse Practitioner Family; Visit Provider Podiatrist Foot & Ankle Surgery | DX: E11.69 Type 2 diabetes mellitus with other specified complication (principal); B35.1 Tinea unguium; L84 Corns and callosities; E11.8 Type 2 diabetes mellitus with unspecified complications; R60.9 Edema, unspecified; G62.9 Polyneuropathy, unspecified; M76.821 Posterior tibial tendinitis, right leg | CPT/HCPCS: 99213 ==

== ENCOUNTER → 2024-11-29 09:57 | Outpatient (BNVA) | payer MEDICARE, BC, SELFPAY | PROVIDERS: PCP Nurse Practitioner Family; Visit Provider Student in an Organized Health Care Education/Training Program | DX: Z96.642 Presence of left artificial hip joint (principal) | CPT/HCPCS: 73502; 99024 ==

== ENCOUNTER → 2025-01-31 13:06 | Outpatient (BNVA) | payer MEDICARE, BC, SELFPAY | PROVIDERS: PCP Nurse Practitioner Family; Visit Provider Student in an Organized Health Care Education/Training Program | DX: M17.11 Unilateral primary osteoarthritis, right knee (principal) | CPT/HCPCS: 73560; 73565; 99214 ==

== ENCOUNTER 2025-02-09 13:31 | Outpatient (CLI) | payer MEDICARE, BC, SELFPAY ==
--- NOTE | 2025-02-09 14:00 | CT_ITS ---
WS: [id number] CT RIGHT knee, noncontrast HISTORY: RIGHT TOTAL KNEE ARTHROPLASTY TECHNIQUE: Protocol for [facility] total knee replacement has been obtained. This includes axial imaging through the RIGHT hip, RIGHT knee and RIGHT ankle. DLP: 985.67 mGy.cm COMPARISON: Radiograph 01/31/2025 Status post LEFT hip arthroplasty. Minimal narrowing of the RIGHT hip joint. No fracture or dislocation. RIGHT knee: Mild tricompartment osteoarthritis. Small marginal osteophytes. No fractures. Large Bailey's cyst. Small suprapatellar joint effusion. RIGHT ankle: Soft tissue calcifications. No bone destruction. CT/CT knee RT [facility] [id number] IMPRESSION: CT imaging provided for [facility] robotic total knee replacement.
== END 2025-02-09 13:32 | disposition home or self-care (01) ==
LOC: RAD 13:32
PROVIDERS: PCP Nurse Practitioner Family; Visit Provider Student in an Organized Health Care Education/Training Program
DX: M17.11 Unilateral primary osteoarthritis, right knee (principal); M25.761 Osteophyte, right knee; M71.21 Synovial cyst of popliteal space [Baker], right knee; M25.461 Effusion, right knee; M25.871 Other specified joint disorders, right ankle and foot
CPT/HCPCS: 73700

== ENCOUNTER → 2025-02-17 14:39 | Outpatient (BNVA) | payer MEDICARE, BC, SELFPAY | PROVIDERS: PCP Nurse Practitioner Family; Visit Provider Nurse Practitioner Family | DX: Z11.52 Encounter for screening for COVID-19 (principal) | CPT/HCPCS: 87426 ==

== ENCOUNTER → 2025-03-07 13:20 | Outpatient (BNVA) | payer MEDICARE, BC, SELFPAY | PROVIDERS: PCP Nurse Practitioner Family; Visit Provider Physician Assistant | DX: Z01.818 Encounter for other preprocedural examination (principal); M17.11 Unilateral primary osteoarthritis, right knee; E11.9 Type 2 diabetes mellitus without complications | CPT/HCPCS: 36415; 80053; 81001; 83036; 85025; 99213 ==

== ENCOUNTER 2025-03-08 07:20 | Outpatient (CLI) | payer MEDICARE, BC, SELFPAY ==
--- NOTE | 2025-03-08 07:15 | USCV_ITS ---
Ashley Graff Age: 69 Gender: F : 1955 Exam Date: 03/08/2025 07:34 Ordering Phys: Lalo Forman DO Technologist: Exam [facility] [facility] Indication: preop hx of dvt PROCEDURES: The following venous structures were evaluated: common femoral vein, profunda vein, proximal portion of the greater saphenous vein, superficial femoral vein, and the popliteal vein. FINDINGS: Normal 2-D Doppler and augmentation and compressibility throughout the lower extremity venous structures. Additional imaging through the proximal calf veins also reveals no thrombus. Limited evaluation of the greater saphenous vein is patent with no thrombus. Complex cystic mass with low level echos and no vascularity measuring 5.0 cm in the right popliteal fossa. CONCLUSIONS No DVT bilateral lower extremities. Right popliteal fossa cyst Dr. Ophelia Payne DO (Electronically Signed) Final Date: 08 March 2025 10:19 S
== END 2025-03-08 07:21 | disposition home or self-care (01) ==
LOC: RAD 07:21
PROVIDERS: PCP Nurse Practitioner Family; Visit Provider Student in an Organized Health Care Education/Training Program
DX: Z01.818 Encounter for other preprocedural examination (principal); I82.403 Acute embolism and thrombosis of unspecified deep veins of lower extremity, bilateral; M71.21 Synovial cyst of popliteal space [Baker], right knee
CPT/HCPCS: 93970

== ENCOUNTER → 2025-03-09 10:28 | Outpatient (BNVA) | payer MEDICARE, BC, SELFPAY | PROVIDERS: PCP Nurse Practitioner Family; Visit Provider Nurse Practitioner Family | DX: D64.9 Anemia, unspecified (principal); E11.9 Type 2 diabetes mellitus without complications | CPT/HCPCS: 85025 ==

== ENCOUNTER → 2025-03-10 10:49 | Outpatient (BNVA) | payer MEDICARE, BC, SELFPAY | PROVIDERS: PCP Nurse Practitioner Family; Visit Provider Nurse Practitioner Family | DX: D64.9 Anemia, unspecified (principal) | CPT/HCPCS: 82274 ==

== ENCOUNTER → 2025-03-15 08:11 | Outpatient (BNVA) | payer MEDICARE, BC, SELFPAY | PROVIDERS: PCP Nurse Practitioner Family; Visit Provider Nurse Practitioner Family | DX: D64.9 Anemia, unspecified (principal) | CPT/HCPCS: 85025 ==

== ENCOUNTER → 2025-03-21 07:55 | Outpatient (BNVA) | payer MEDICARE, BC, SELFPAY | PROVIDERS: PCP Nurse Practitioner Family; Visit Provider Nurse Practitioner Family | DX: D64.9 Anemia, unspecified (principal); E11.9 Type 2 diabetes mellitus without complications | CPT/HCPCS: 82607; 82746; 83550; 85025 ==

== ENCOUNTER → 2025-04-26 08:57 | Outpatient (BNVA) | payer MEDICARE, BC, SELFPAY | PROVIDERS: PCP Nurse Practitioner Family; Visit Provider Nurse Practitioner Family | DX: D64.9 Anemia, unspecified (principal) | CPT/HCPCS: 83550; 85025 ==

== ENCOUNTER → 2025-05-16 09:48 | Outpatient (BNVA) | payer MEDICARE, BC, SELFPAY | PROVIDERS: PCP Nurse Practitioner Family; Visit Provider Physician Assistant | DX: M17.11 Unilateral primary osteoarthritis, right knee (principal) | CPT/HCPCS: 99214 ==